=== PATIENT | female | born 1985 | race Caucasian/White ===

== ENCOUNTER 2019-07-19 08:13 | Emergency (ER) | payer MEDICAID ==
[2019-07-19 08:31] VITALS: O2SAT 97
--- NOTE | 2019-07-19 08:34 | ERPHSYRPT ---
- History of Present Illness Time Seen by Provider: 07/19/19 08:27 Source: patient Exam Limitations: no limitations Method of Injury: twisted Occurred: just prior to arrival, this morning Quality: aching Severity of Pain-Max: mild (Patient took tylenol just prior to arrival. She declined additional pain medication.) Lower Extremities Pain: ankle: right (Medial aspect right ankle. Remainder of physical exam is negative. ) Modifying Factors: Improves With: movement (Movement and palpation to medial aspect right ankle reproduce symptoms. ) Associated Symptoms: none Allergies/Adverse Reactions: No Known Drug Allergies Allergy (Unverified 07/19/19 08:24) Home Medications: Duloxetine HCl [Cymbalta] 1 tab PO HS 07/19/19 [History] - Review of Systems Constitutional: No Fever, No Chills Eyes: No Symptoms Ears, Nose, & Throat: No Symptoms Respiratory: No Cough, No Dyspnea Cardiac: No Chest Pain, No Edema, No Syncope Abdominal/Gastrointestinal: No Abdominal Pain, No Nausea, No Vomiting, No Diarrhea Genitourinary Symptoms: No Dysuria Musculoskeletal: No Back Pain, No Neck Pain Skin: No Rash Neurological: No Dizziness, No Focal Weakness, No Sensory Changes Psychological: No Symptoms Endocrine: No Symptoms All Other Systems: Reviewed and Negative - Past Medical History Pertinent Past Medical History: No Psycho-Social History: Depression - Past Surgical History Past Surgical History: Yes Gastrointestinal: Cholecystectomy - Social History Smoking Status: Never smoker (Tonsillectomy and bilateral hand tendon surgery.) - Female History Hx Now: No - Nursing Vital Signs Nursing Vital Signs: Initial Vital Signs Temperature 98.0 F 07/19/19 08:25 Pulse Rate 101 H 07/19/19 08:25 Respiratory Rate 18 07/19/19 08:25 Blood Pressure 111/71 07/19/19 08:25 O2 Sat by Pulse Oximetry 97 07/19/19 08:25 Pain Scale Pain Intensity 7 - Physical Exam General Appearance: alert Eyes, Ears, Nose, Throat Exam: moist mucous membranes Neck Exam: non-tender, supple Cardiovascular/Respiratory Exam: chest non-tender, normal breath sounds, regular rate/rhythm, no respiratory distress Gastrointestinal/Abdominal Exam: non-tender, guarding Back Exam: normal inspection, No vertebral tenderness Legs Exam: right leg: non-tender Knees Exam: right knee: non-tender Ankle Exam: right ankle: normal inspection, normal range of motion, no evidence of injury, pain Foot Exam: right foot: non-tender, normal range of motion, left foot: no evidence of injury Neuro/Tendon Exam: normal sensation, normal motor functions Mental Status Exam: alert, oriented x 3, cooperative Skin Exam: normal color, warm, dry SpO2 Interpretation: normal SpO2: 97 O2 Delivery: Room Air Comments: Patient has mild soreness at right achilles. Achilles function intact. Overlying ST intact. No signs of trauma. - Radiology Exams Right Ankle X-ray Interpretation: No Fracture Ordered Tests: Active Orders 24 hr Category Date Time Status Crutches STAT Care 07/19/19 08:57 Active ANKLE (3 VIEWS) Stat Exams 07/19/19 08:28 Completed - Progress Progress: improved Progress Note: 07/19/19 08:39 Patient reassessed. She feels well. Appears comfortable. Patient declined additional pain medication. X ray negative for acute pathology. Involved extremity is NVI distally. - Departure Departure Disposition: Home Clinical Impression: Ankle sprain, Heel spur Condition: Good Critical Care Time: No Referrals: JENARO FELIX PA [Primary Care Provider] - Instructions: Ankle Sprain Additional Instructions: Discharge/Care Plan ISIAH MENDOZA was seen on 07/19/19 in the Emergency Room. The patient was counseled regarding Diagnosis,Lab results, Imaging studies, need for follow up and when to return to the Emergency Room. Prescriptions given: Discharge Note I have spoken with the patient and/or caregivers. I have explained the patient' s condition, diagnosis and treatment plan based on the information available to me at this time. I have answered the patient's and/or caregiver's questions and addressed any concerns. The patient and/or caregivers have as good understanding of the patient's diagnosis, condition and treatment plan as can be expected at this point. The vital signs have been stable. The patient's condition is stable and appropriate for discharge from the emergency department. The patient will pursue further outpatient evaluation with the primary care physician or other designated or consulting physician as outlined in the discharge instructions. The patient and/or caregivers are agreeable to this plan of care and follow-up instructions have been explained in detail. The patient and/or caregivers have received these instruction. The patient/and or caregivers are aware that any significant change in condition or worsening of symptoms should prompt an immediate return to this or the closest emergency department or call 911. Forms: Ortho Referral
--- NOTE | 2019-07-19 08:48 | XRAY ---
Indication: Pain following twisting injury. Comparison: None 3 views of the right ankle demonstrates mild soft tissue swelling and tiny plantar heel spur. No other bony, articular, or soft tissue abnormalities.
[2019-07-19 09:19] VITALS: BP 97/63; PULSE 83
== END 2019-07-19 09:00 | disposition home or self-care (01) ==
LOC: ED 08:13
DX: S93.491A Sprain of other ligament of right ankle, initial encounter (principal); X50.1XXA Overexertion from prolonged static or awkward postures, initial encounter; Y93.9 Activity, unspecified; Y92.9 Unspecified place or not applicable; F32.9 Major depressive disorder, single episode, unspecified; M77.30 Calcaneal spur, unspecified foot
CPT/HCPCS: 73610; 99283

== ENCOUNTER 2020-06-17 11:06 | Emergency (ER) | payer SELFPAY ==
[2020-06-17] MEDS ORDERED: TORAdol 30 mg Injection IM ONE (11:27)
[2020-06-17] MEDS ORDERED: Fluor-I-Strip/Ful-Flo OP ONE ×2 (11:28→11:44)
[2020-06-17] MEDS ORDERED: TETRACAINE 0.5% STERI-UNIT SOL OP STA (11:29)
[2020-06-17] MEDS ORDERED: TETRACAINE 0.5% STERI-UNIT SOL OP ONE (11:34)
[2020-06-17] MEDS ORDERED: TORAdol 30 mg Injection ONE (11:35)
[2020-06-17] MEDS ORDERED: Erythromycin 3.5 GM OPHTH. OP ONE (11:50)
--- NOTE | 2020-06-17 11:57 | ERPHSYRPT ---
- History of Present Illness Source: patient Patient Subjective Stated Complaint: pt here for lesions to face and head for 8 days now, no fever. vomiting Triage Nursing Assessment: pt alert, anxious crying and times she is loud with staff, emtional support given, pt right side of face swollen, with lesion to right side of forehead, in hair. Physician History: Patient is a 34-year-old female presents to our ED with complaints of facial swelling. Patient has herpetic vesicles on scalp forehead. Her right eye is injected with subconjunctival hemorrhage. No acute change in vision. Patient symptoms started 1 week ago Wednesday. Symptoms have been constant. Symptoms have been progressive. Patient complains of tender lymph nodes on the side of her face as well. No trauma. No fever. No nausea or vomiting. No headache. Symptoms are moderate in intensity. Palpation to the area of involvement reproduces symptoms. Patient has poor dentition. She denies dental pain. No difficulty swallowing no difficulty breathing no difficulty eating. Patient is otherwise healthy. She voices no other complaints or concerns at this time. Timing/Duration: week(s) (Symptoms have been ongoing for 8 days.) Severity: moderate Modifying Factors: Improves With: nothing Associated Symptoms: No nausea, No vomiting, No abdominal pain, No heartburn, No diaphoresis, No cough, No chest pain, No fever, No syncope, No seizure, No weakness Allergies/Adverse Reactions: No Known Drug Allergies Allergy (Unverified 07/19/19 08:24) Home Medications: Duloxetine HCl [Cymbalta] 1 tab PO HS 07/19/19 [History] Hx Influenza Vaccination/Date Given: No Hx Pneumococcal Vaccination/Date Given: No Immunizations Up to Date: Yes Travel Risk - International Travel Have you traveled outside of the country in past 3 weeks: No - Coronavirus Screening Are you exhibiting any of the following symptoms?: No Close contact with a COVID-19 positive Pt in past 14-21 Days: No - Review of Systems Constitutional: No Symptoms, No Fever, No Chills Eyes: No Symptoms Ears, Nose, & Throat: No Symptoms Respiratory: No Symptoms, No Cough, No Dyspnea Cardiac: No Symptoms, No Chest Pain, No Edema, No Syncope Abdominal/Gastrointestinal: No Symptoms, No Abdominal Pain, No Nausea, No Vomiting, No Diarrhea Genitourinary Symptoms: No Symptoms, No Dysuria Musculoskeletal: No Symptoms, No Back Pain, No Neck Pain Skin: No Symptoms, No Rash Neurological: No Symptoms, No Dizziness, No Focal Weakness, No Sensory Changes Psychological: No Symptoms Endocrine: No Symptoms Hematologic/Lymphatic: No Symptoms Immunological/Allergic: No Symptoms All Other Systems: Reviewed and Negative - Past Medical History Pertinent Past Medical History: No Neurological History: No Pertinent History ENT History: No Pertinent History Cardiac History: No Pertinent History Respiratory History: No Pertinent History Endocrine Medical History: No Pertinent History Musculoskeletal History: No Pertinent History GI Medical History: No Pertinent History History: No Pertinent History Psycho-Social History: Depression Female Reproductive Disorders: No Pertinent History Other Medical History: chronic back - Past Surgical History Past Surgical History: Yes Neuro Surgical History: No Pertinent History Cardiac: No Pertinent History Respiratory: No Pertinent History Gastrointestinal: Cholecystectomy Genitourinary: No Pertinent History Musculoskeletal: Orthopedic Surgery, Other Female Surgical History: No Pertinent History Other Surgical History: Tendon surgery on carole hands. - Social History Smoking Status: Never smoker Exposure to second hand smoke: No Drug Use: none Patient Lives Alone: No - Female History Hx Last Menstrual Period: dec Hx Now: No - Nursing Vital Signs Nursing Vital Signs: Pain Scale Pain Intensity 10 - Physical Exam General Appearance: no apparent distress, alert Eye Exam: PERRL/EOMI, eyes nml inspection, other (Subconjunctival hemorrhage. No obvious dendritic lesions on the cornea. Patient denies acute change in vision. Patient has some swelling along her upper eyelid however this is probably trickled down edema from her scalp forehead area.) Ears, Nose, Throat Exam: normal ENT inspection, TMs normal, pharynx normal, moist mucous membranes, other (There is lymph nodes anterior to her right ear and just inferior to the right mandibular jawline. Overlying soft tissue intact.) Neck Exam: normal inspection, non-tender, supple, full range of motion Respiratory Exam: normal breath sounds, lungs clear, No respiratory distress Cardiovascular Exam: regular rate/rhythm, normal heart sounds, normal peripheral pulses Gastrointestinal/Abdomen Exam: soft, normal bowel sounds, No tenderness, No mass Back Exam: normal inspection, normal range of motion, No CVA tenderness, No vertebral tenderness Extremity Exam: normal inspection, normal range of motion, pelvis stable Neurologic Exam: alert, oriented x 3, cooperative, normal mood/affect, nml cerebellar function, nml station & gait, sensation nml, No motor deficits Skin Exam: normal color, warm, dry, No rash Lymphatic Exam: No adenopathy - Course Nursing assessment & vital signs reviewed: Yes Ordered Tests: Active Orders 24 hr Category Date Time Status HCG,QUALITATIVE URINE Stat Lab 06/17/20 11:28 Ordered UA W/RFX UR CULTURE Stat Lab 06/17/20 11:28 Ordered Medication Summary Generic Name Dose Route Start Last Admin Trade Name Freq PRN Reason Stop Dose Admin Acyclovir 800 mg 06/17/20 15:00 Zovirax 800 Mg PO 07/17/20 14:59 5XD CONSTANTINE Discontinued Medications Generic Name Dose Route Start Last Admin Trade Name Freq PRN Reason Stop Dose Admin Erythromycin 3.5 gm 06/17/20 11:50 Erythromycin 3.5 Gm Ophth. OP 06/17/20 11:51 STAT ONE Fluorescein Sodium 1 mg 06/17/20 11:28 Vvrzv-H-Ytbyr/Ful-Souleymane OP 06/17/20 11:29 STAT ONE Fluorescein Sodium Confirm 06/17/20 11:44 Nysvu-S-Dnzik/Ful-Souleymane Administered 06/17/20 11:45 Dose 1 mg OP .STK-MED ONE Ketorolac Tromethamine 60 mg 06/17/20 11:27 Toradol 30 Mg Injection IM 06/17/20 11:28 STAT ONE Ketorolac Tromethamine Confirm 06/17/20 11:35 Toradol 30 Mg Injection Administered 06/17/20 11:36 Dose 60 mg .ROUTE .STK-MED ONE Tetracaine HCl 4 ml 06/17/20 11:29 Tetracaine 0.5% Steri-Unit Marily OP 06/17/20 11:30 STAT STA Tetracaine HCl Confirm 06/17/20 11:34 Tetracaine 0.5% Steri-Unit Marily Administered 06/17/20 11:35 Dose 4 ml OP .STK-MED ONE - Progress Progress: improved Progress Note: 06/17/20 11:56 Patient reassessed. Pain improved. 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 Patient received a dose of acyclovir in our ED. A prescription for Toradol and acyclovir forwarded to patient's pharmacy. No indication for glucocorticoids at this time. No indication for further work-up at this time. Will discharge home. Patient voices no other complaints or concerns at this time. Patient given referrals to both her primary care doctor and our available school director if she cannot get into her private school director 06/17/20 11:59 Counseled pt/family regarding: lab results, diagnosis, need for follow-up - Departure Departure Disposition: Home Clinical Impression: Ophthalmic herpes zoster Condition: Stable Critical Care Time: No Referrals: JENARO FELIX PA [Primary Care Provider] - LUKE RANKIN OD [NON-STAFF PHY W/O PRIVILEGES] - Additional Instructions: Discharge/Care Plan ISIAH MENDOZA was seen on 06/17/20 in the Emergency Room. The patient was counseled regarding Diagnosis,Lab results, Imaging studies, need for follow up and when to return to the Emergency Room. Prescriptions given: Discharge Note I have spoken with the patient and/or caregivers. I have explained the patient's condition, diagnosis and treatment plan based on the information available to me at this time. I have answered the patient's and/or caregiver's questions and addressed any concerns. The patient and/or caregivers have as good understanding of the patient's diagnosis, condition and treatment plan as can be expected at this point. The vital signs have been stable. The patient's condition is stable and appropriate for discharge from the emergency department. The patient will pursue further outpatient evaluation with the primary care physician or other designated or consulting physician as outlined in the discharge instructions. The patient and/or caregivers are agreeable to this plan of care and follow-up instructions have been explained in detail. The patient a nd/or caregivers have received these instruction. The patient/and or caregivers are aware that any significant change in condition or worsening of symptoms should prompt an immediate return to this or the closest emergency department or call 911. Prescriptions: Erythromycin Base 3.5 gm [Erythromycin 3.5 GM OPHTH.] 3.5 gm OP TID #1 tube Ketorolac Tromethamine [Toradol] 10 mg PO TID 5 Days #15 tablet Acyclovir 800 mg [Zovirax 800 mg] 800 mg PO 5XD 7 Days #35 tablet
[2020-06-17 12:05] LABS: Appearance CLOUDY (CLEAR); Bacteria FEW /HPF (NEGATIVE); Bilirubin NEGATIVE (NEGATIVE); Blood NEGATIVE Ery/ul (0-5); Epithelial Cells RARE /HPF (FEW); Glucose NEGATIVE (NEGATIVE); Ketones NEGATIVE (NEGATIVE); Leukocyte Esterase TRACE (NEGATIVE); Mucus SLIGHT /HPF (NEGATIVE); Nitrite NEGATIVE (NEGATIVE); Protein,Urine Dip 100 (Negative); Specific Gravity 1.015 (1.005-1.025); Urobilinogen 2 mg/dL (0-1)
[2020-06-17] MEDS ORDERED: ZOVIRAX 800 MG PO SCH (15:00)
== END 2020-06-17 12:40 | disposition home or self-care (01) ==
LOC: ED 11:06
DX: B02.30 Zoster ocular disease, unspecified (principal)
CPT/HCPCS: 81001; 84703; 87086; 96372; 99284; J1885; A9270-GY

== ENCOUNTER 2020-10-15 23:12 | Emergency (ER) | payer OTHER ==
[2020-10-15] MEDS ORDERED: TYLENOL 325 MG PO ONE (23:54)
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
[2020-10-16] MEDS ORDERED: TYLENOL 325 MG ONE (00:17)
[2020-10-16 02:14] VITALS: BP 107/76; PULSE 79; O2SAT 97
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
== END 2020-10-16 02:17 | disposition home or self-care (01) ==
LOC: ED 23:12
DX: S39.012A Strain of muscle, fascia and tendon of lower back, initial encounter (principal); S30.23XA Contusion of vagina and vulva, initial encounter; Y04.0XXA Assault by unarmed brawl or fight, initial encounter; Y93.89 Activity, other specified; Y92.89 Other specified places as the place of occurrence of the external cause
CPT/HCPCS: 72100; 99283; A9270-GY

== ENCOUNTER 2021-06-07 06:31 | Emergency (ER) | payer OTHER ==
[2021-06-07] MEDS ORDERED: Sodium Chloride 0.9% 1000 ML 1,000 ML IV STA (07:16)
[2021-06-07] MEDS ORDERED: Zofran 4 MG/2 ML VIAL IV ONE (07:16)
[2021-06-07] MEDS ORDERED: Sodium Chloride 0.9% 1000 ML 1,000 ML ONE (07:24)
[2021-06-07] MEDS ORDERED: Zofran 4 MG/2 ML VIAL ONE (07:24)
[2021-06-07] MEDS ORDERED: MORPHINE SULFATE 4 MG INJ ONE ×2 (07:34→08:55)
[2021-06-07 07:36] LABS: Absolute Neutrophil Ct (ANC) 15.24 (1.4-6.9); BASOPHIL % 0.1 % (0.0-0.4); Basophil (Absolute #) 0.02 (0-0.4); Eosinophil % 0.2 % (0.00-5.0); Eosinophil (Absolute #) 0.03 (0-0.5); Hematocrit 47.6 % (35-47); Hemoglobin 15.2 gm/dl (12.0-16.0); Lymphocyte (Absolute #) 2.95 (1.0-4.6); Lymphocytes % 14.9 % (24.0-44.0); Mean Cell Volume 85.6 fl (78-100); Mean Corpuscular Hemoglobin 27.3 pg (26-32); Mean Corpuscular Hgb Concent. 31.9 g/dl (32-36); Mean Platelet Volume 10.6 fl (7.5-11.0); Monocytes % 8.1 % (0.0-12.0); Neutrophil % 76.7 % (36.0-66.0); Platelet Count 222 K/mm3 (150-450); Red Blood Count 5.56 M/mm3 (4.1-5.4); Red Cell Distribution Width 17.3 % (11.5-14.0); White Blood Count 19.8 K/mm3 (4.0-10.5)
[2021-06-07] MEDS ORDERED: MORPHINE SULFATE 4 MG INJ IV ONE ×2 (07:38→11:30)
--- NOTE | 2021-06-07 07:38 | ERPHSYRPT ---
- History of Present Illness Time Seen by Provider: 06/07/21 07:15 Historian: patient Exam Limitations: no limitations Patient Subjective Stated Complaint: Pt states she has a new diagnosis of Celiac Disease within the last 1-2 months. States she has been vomiting since Wednesday, can't keep anything down. Has not had a bowel movement for 1 week except for 1 small stool last night. Also states she has lost 6 pounds since Wednesday Triage Nursing Assessment: Pt ambulated to room guarding her abdomen. Respirations easy and non-labored. Abdomen tender to palpation. Hypoactive bowel sounds present Physician History: 35 years old morbidly obese female recently diagnosed with celiac disease presented in ER with chief complaint of 4 days history of generalized abdominal pain moderate to severe, sharp, aggravated with oral intake, associated with multiple episodes of nonprojectile, nonbilious vomiting without hematemesis. Denies any diarrhea. No fever or chills reported. Timing/Duration: day(s) (4), constant, gradual onset, worse Activities at Onset: rest Quality: sharpness Abdominal Pain Onset Location: generalized abdomen Pain Radiation: no radiation Severity of Pain-Max: severe Severity of Pain-Current: severe Modifying Factors: Worsens With: eating, vomiting Associated Symptoms: nausea, vomiting Previous symptoms: no prior history Allergies/Adverse Reactions: No Known Drug Allergies Allergy (Verified 10/15/20 23:26) Home Medications: Duloxetine HCl 30 mg [Cymbalta 30 MG Capsule] 60 mg PO DAILY 06/07/21 [History] Famotidine 20 mg [Pepcid 20 MG] 40 mg PO DAILY 06/07/21 [History] Gabapentin 100 mg [Neurontin 100 MG] 100 mg PO BID 06/07/21 [History] Loratadine 10 mg [Claritin 10 mg] 10 mg PO DAILY 06/07/21 [History] Paroxetine HCl 20 mg [Paxil 20 MG] 10 mg PO DAILY 06/07/21 [History] ondansetron HCL [Zofran] 4 mg PO TID PRN 06/07/21 [History] Hx Tetanus, Diphtheria Vaccination/Date Given: Yes Hx Influenza Vaccination/Date Given: No Hx Pneumococcal Vaccination/Date Given: No Travel Risk - International Travel Have you traveled outside of the country in past 3 weeks: No - Coronavirus Screening Are you exhibiting any of the following symptoms?: Yes Symptoms: Vomiting/Diarrhea Close contact with a COVID-19 positive Pt in past 14-21 Days: No - Vaccine Status Have you recieved a Covid-19 vaccination: No - Review of Systems Constitutional: Fatigue, Weakness Eyes: No Symptoms Ears, Nose, & Throat: No Symptoms Respiratory: No Symptoms Cardiac: No Symptoms Abdominal/Gastrointestinal: Abdominal Pain, Nausea, Vomiting Genitourinary Symptoms: No Symptoms Musculoskeletal: No Symptoms Skin: No Symptoms Neurological: No Symptoms Psychological: Anxiety Endocrine: No Symptoms Hematologic/Lymphatic: No Symptoms Immunological/Allergic: No Symptoms - Past Medical History Pertinent Past Medical History: Yes Neurological History: No Pertinent History ENT History: No Pertinent History Cardiac History: No Pertinent History Respiratory History: No Pertinent History Endocrine Medical History: No Pertinent History Musculoskeletal History: No Pertinent History GI Medical History: Other History: No Pertinent History Psycho-Social History: Depression Female Reproductive Disorders: No Pertinent History Other Medical History: chronic back, celiac disease - Past Surgical History Past Surgical History: Yes Neuro Surgical History: No Pertinent History Cardiac: No Pertinent History Respiratory: No Pertinent History Gastrointestinal: Cholecystectomy Genitourinary: No Pertinent History Musculoskeletal: Orthopedic Surgery, Other Female Surgical History: No Pertinent History Other Surgical History: Tendon surgery on carole hands. - Social History Smoking Status: Never smoker Exposure to second hand smoke: No Drug Use: none Patient Lives Alone: No - Female History Hx Now: No - Nursing Vital Signs Nursing Vital Signs: Initial Vital Signs Temperature 98.4 F 06/07/21 07:14 Pulse Rate 108 H 06/07/21 07:14 Respiratory Rate 20 06/07/21 07:14 Blood Pressure 124/96 06/07/21 07:14 O2 Sat by Pulse Oximetry 95 06/07/21 07:14 Pain Scale Pain Intensity 6 - Physical Exam General Appearance: no apparent distress, alert, anxiety Eye Exam: PERRL/EOMI, eyes nml inspection Ears, Nose, Throat Exam: normal ENT inspection, pharynx normal Neck Exam: normal inspection, non-tender, supple, full range of motion Respiratory Exam: normal breath sounds, lungs clear Cardiovascular Exam: normal heart sounds, tachycardia Gastrointestinal/Abdomen Exam: soft, normal bowel sounds, tenderness (Mild periumbilical area) Back Exam: normal inspection, normal range of motion Extremity Exam: normal inspection, normal range of motion, pelvis stable Neurologic Exam: alert, oriented x 3, cooperative Skin Exam: normal color SpO2 Interpretation: normal SpO2: 95 O2 Delivery: Room Air Ordered Tests: Active Orders 24 hr Category Date Time Status NPO (ED) STAT Care 06/07/21 07:38 Active ABDOMEN AND PELVIS W CONTRAST [CT] Stat Exams 06/07/21 07:39 Taken CBC W DIFF Stat Lab 06/07/21 07:30 Completed CMP Stat Lab 06/07/21 07:30 Completed CULTURE,URINE Stat Lab 06/07/21 07:32 Received HCG,QUALITATIVE URINE Stat Lab 06/07/21 07:16 Completed LIPASE Stat Lab 06/07/21 07:30 Completed Lactic Acid Stat Lab 06/07/21 10:38 Completed UA W/RFX UR CULTURE Stat Lab 06/07/21 07:32 Completed Medication Summary Generic Name Dose Route Start Last Admin Trade Name Freq PRN Reason Stop Dose Admin Ceftriaxone Sodium/Dextrose 2 g in 50 mls @ 100 mls/hr 06/07/21 10:38 Rocephin 2 Gm-D5w 50ml Bag IV 06/07/21 11:07 STAT STA Discontinued Medications Generic Name Dose Route Start Last Admin Trade Name Freq PRN Reason Stop Dose Admin Sodium Chloride 1,000 mls @ 999 mls/hr 06/07/21 07:16 06/07/21 08:35 Sodium Chloride 0.9% 1000 Ml IV 06/07/21 08:16 Infused .Q1H1M STA Infusion Sodium Chloride Confirm 06/07/21 07:24 Sodium Chloride 0.9% 1000 Ml Administered 06/07/21 07:25 Dose 1,000 mls @ ud .ROUTE .STK-MED ONE Morphine Sulfate Confirm 06/07/21 07:34 Morphine Sulfate 4 Mg/Ml Injection Administered 06/07/21 07:35 Dose 4 mg .ROUTE .STK-MED ONE Morphine Sulfate 4 mg 06/07/21 07:38 06/07/21 07:40 Morphine Sulfate 4 Mg/Ml Injection IV 06/07/21 07:39 4 mg STAT ONE Administration Morphine Sulfate Confirm 06/07/21 08:55 Morphine Sulfate 4 Mg/Ml Injection Administered 06/07/21 08:56 Dose 4 mg .ROUTE .STK-MED ONE Ondansetron HCl 4 mg 06/07/21 07:16 06/07/21 07:25 Ondansetron Hcl 4 Mg/2 Ml Vial IV 06/07/21 07:17 4 mg STAT ONE Administration Ondansetron HCl Confirm 06/07/21 07:24 Ondansetron Hcl 4 Mg/2 Ml Vial Administered 06/07/21 07:25 Dose 4 mg .ROUTE .STK-MED ONE Lab/Rad Data: Laboratory Result Diagrams 06/07/21 07:30 06/07/21 07:30 Laboratory Results 06/07/21 06/07/21 06/07/21 Range/Units 10:38 07:32 07:30 WBC (4.0-10.5) K/mm3 RBC (4.1-5.4) M/mm3 Hgb (12.0-16.0) gm/dl Hct (35-47) % MCV (78-100) fl MCH (26-32) pg MCHC (32-36) g/dl RDW (11.5-14.0) % Plt Count (150-450) K/mm3 MPV (7.5-11.0) fl Gran % (36.0-66.0) % Eos # (Auto) (0-0.5) Absolute Lymphs (auto) (1.0-4.6) Absolute Monos (auto) (0.0-1.3) Lymphocytes % (24.0-44.0) % Monocytes % (0.0-12.0) % Eosinophils % (0.00-5.0) % Basophils % (0.0-0.4) % Absolute Granulocytes (1.4-6.9) Basophils # (0-0.4) Sodium 138 (137-145) mmol/L Potassium 3.5 (3.5-5.1) mmol/L Chloride 103 (98-107) mmol/L Carbon Dioxide 25 (22-30) mmol/L Anion Gap 13.0 (5-15) MEQ/L BUN 8 (7-17) mg/dL Creatinine 0.65 (0.52-1.04) mg/dL Estimated GFR > 60.0 ML/MIN Glucose 112 H (74-106) mg/dL Lactic Acid 1.9 (0.4-2.0) Calcium 8.8 (8.4-10.2) mg/dL Total Bilirubin 1.10 (0.2-1.3) mg/dL AST 30 (14-36) U/L ALT 14 (0-35) U/L Alkaline Phosphatase 104 (38-126) U/L Serum Total Protein 5.8 L (6.3-8.2) g/dL Albumin 3.6 (3.5-5.0) g/dL Lipase 65 (23-300) U/L Urine Color YELLOW (YELLOW) Urine Appearance CLOUDY (CLEAR) Urine pH 6.0 (5-6) Ur Specific Casper 1.017 (1.005-1.025) Urine Protein NEGATIVE (Negative) Urine Ketones SMALL (NEGATIVE) Urine Blood NEGATIVE (0-5) Venkata/ul Urine Nitrite NEGATIVE (NEGATIVE) Urine Bilirubin NEGATIVE (NEGATIVE) Urine Urobilinogen 2 (0-1) mg/dL Ur Leukocyte Esterase LARGE (NEGATIVE) Urine WBC (Auto) 16-25 (0-5) /HPF Urine RBC (Auto) 0-2 (0-2) /HPF U Epithel Cells (Auto) FEW (FEW) /HPF Urine Bacteria (Auto) RARE (NEGATIVE) /HPF Urine Mucus (Auto) SLIGHT (NEGATIVE) /HPF Urine Culture Reflexed YES (NO) Urine Glucose NEGATIVE (NEGATIVE) mg/dL Urine HCG, Qual (Negative) 06/07/21 06/07/21 Range/Units 07:30 07:16 WBC 19.8 H (4.0-10.5) K/mm3 RBC 5.56 H (4.1-5.4) M/mm3 Hgb 15.2 (12.0-16.0) gm/dl Hct 47.6 H (35-47) % MCV 85.6 (78-100) fl MCH 27.3 (26-32) pg MCHC 31.9 L (32-36) g/dl RDW 17.3 H (11.5-14.0) % Plt Count 222 (150-450) K/mm3 MPV 10.6 (7.5-11.0) fl Gran % 76.7 H (36.0-66.0) % Eos # (Auto) 0.03 (0-0.5) Absolute Lymphs (auto) 2.95 (1.0-4.6) Absolute Monos (auto) 1.60 H (0.0-1.3) Lymphocytes % 14.9 L (24.0-44.0) % Monocytes % 8.1 (0.0-12.0) % Eosinophils % 0.2 (0.00-5.0) % Basophils % 0.1 (0.0-0.4) % Absolute Granulocytes 15.24 H (1.4-6.9) Basophils # 0.02 (0-0.4) Sodium (137-145) mmol/L Potassium (3.5-5.1) mmol/L Chloride (98-107) mmol/L Carbon Dioxide (22-30) mmol/L Anion Gap (5-15) MEQ/L BUN (7-17) mg/dL Creatinine (0.52-1.04) mg/dL Estimated GFR ML/MIN Glucose (74-106) mg/dL Lactic Acid (0.4-2.0) Calcium (8.4-10.2) mg/dL Total Bilirubin (0.2-1.3) mg/dL AST (14-36) U/L ALT (0-35) U/L Alkaline Phosphatase (38-126) U/L Serum Total Protein (6.3-8.2) g/dL Albumin (3.5-5.0) g/dL Lipase (23-300) U/L Urine Color (YELLOW) Urine Appearance (CLEAR) Urine pH (5-6) Ur Specific Casper (1.005-1.025) Urine Protein (Negative) Urine Ketones (NEGATIVE) Urine Blood (0-5) Venkata/ul Urine Nitrite (NEGATIVE) Urine Bilirubin (NEGATIVE) Urine Urobilinogen (0-1) mg/dL Ur Leukocyte Esterase (NEGATIVE) Urine WBC (Auto) (0-5) /HPF Urine RBC (Auto) (0-2) /HPF U Epithel Cells (Auto) (FEW) /HPF Urine Bacteria (Auto) (NEGATIVE) /HPF Urine Mucus (Auto) (NEGATIVE) /HPF Urine Culture Reflexed (NO) Urine Glucose (NEGATIVE) mg/dL Urine HCG, Qual NEGATIVE (Negative) - Progress Progress: improved, pain not gone completely, re-examined Progress Note: 06/07/21 11:02 35 years old is evaluated for abdominal pain with vomiting. Given symptomatic t reatment along with fluid bolus, on reevaluation feeling much better. No vomiting while in the ER. Work-up showed white count of 19, grossly unremarkable chemistries and normal lactate. She does have UTI and given a dose of Rocephin in here. Elevated white count could be reactive versus UTI. Lungs bilateral clear to auscultation and some atelectasis on the CT without any consolidation and maintaining oxygen saturation around 97%. I would give her antibiotics and recommended outpatient follow-up. Discussed signs symptoms of worsening needing return to ER which he seems understanding. Counseled pt/family regarding: lab results, diagnosis, need for follow-up, rad results - Departure Departure Disposition: Home Clinical Impression: Generalized abdominal pain, Nausea & vomiting, Acute UTI Condition: Stable Critical Care Time: No Referrals: BRENDAN ESCALERA, [Primary Care Provider] - Follow up/PCP as directed (In 2 d ays for reevaluation) Instructions: Acute Abdomen (Belly Pain), Adult (DC), Nausea and Vomiting, Adult (DC) Additional Instructions: Drink plenty of fluids. Take Tylenol as needed for aches and pain. Take Zofran/Phenergan as needed for nausea and vomiting. Follow-up with primary care for reevaluation in 2 days. Return to ER for worsening vomiting/abdominal pain or if develop fever chills etc. Continue with antibiotics. Prescriptions: Promethazine HCl 25 mg [Phenergan 25 mg] 25 mg PO Q8H PRN PRN #10 tablet PRN Reason: Vomiting Levofloxacin [Levaquin 500 MG Tablet] 500 mg PO DAILY #7 tablet
[2021-06-07 07:51] LABS: ALBUMIN 3.6 g/dL (3.5-5.0); ALKALINE PHOSPHATASE 104 U/L (38-126); BLOOD UREA NITROGEN 8 mg/dL (7-17); CHLORIDE 103 mmol/L (98-107); Calcium 8.8 mg/dL (8.4-10.2); Carbon Dioxide 25 mmol/L (22-30); Creatinine 1 0.65 mg/dL (0.52-1.04); EST GLOMERULAR FILTRATION RATE > 60.0 ML/MIN; Glucose 112 mg/dL (74-106); LIPASE 65 U/L (23-300); Potassium 3.5 mmol/L (3.5-5.1); SGOT/AST 30 U/L (14-36); SGPT/ALT 14 U/L (0-35); SODIUM 138 mmol/L (137-145); Total Protein 5.8 g/dL (6.3-8.2)
[2021-06-07 09:49] LABS: Appearance CLOUDY (CLEAR); Bacteria RARE /HPF (NEGATIVE); Bilirubin NEGATIVE (NEGATIVE); Blood NEGATIVE Ery/ul (0-5); Epithelial Cells FEW /HPF (FEW); Glucose NEGATIVE (NEGATIVE); Ketones SMALL (NEGATIVE); Leukocyte Esterase LARGE (NEGATIVE); Mucus SLIGHT /HPF (NEGATIVE); Nitrite NEGATIVE (NEGATIVE); Protein,Urine Dip NEGATIVE (Negative); RBC 0-2 /HPF (0-2); Specific Gravity 1.017 (1.005-1.025); Urobilinogen 2 mg/dL (0-1)
[2021-06-07] MEDS ORDERED: ROCEPHIN 2 Gm-D5w 50ML BAG** 2 G/50 ML IVPB IV STA (10:38)
[2021-06-07] MEDS ORDERED: ROCEPHIN 2 Gm-D5w 50ML BAG** 2 G/50 ML IVPB IV ONE (11:17)
[2021-06-07 11:25] VITALS: BP 134/91; PULSE 80; O2SAT 93
--- NOTE | 2021-06-07 18:59 | XRAY ---
Indication: Abdomen pain, nausea, and vomiting. Bowel obstruction. Multiple contiguous axial images obtained through the abdomen and pelvis using 80 cc Isovue 370 contrast. Comparison: None Lung bases demonstrates minimal bibasilar patchy groundglass airspace disease, right greater than left. No effusion. Heart not enlarged. Noncontrasted stomach and bowel loops appear nonobstructed. Normal appendix. Previous cholecystectomy. No free fluid/air. Remaining liver, pancreas, spleen, adrenal glands, kidneys, ureters, bladder, uterus, and aorta are unremarkable. No pathologic retroperitoneal lymphadenopathy. Osseous structures intact. No ventral or inguinal hernias. Impression: 1. Minimal bibasilar patchy groundglass airspace disease. 2. Remaining CT abdomen/pelvis with contrast exam is negative. Comment: Preliminary interpretation made by [facility]. No critical discrepancy.
== END 2021-06-07 11:30 | disposition home or self-care (01) ==
LOC: ED 06:31
DX: N39.0 Urinary tract infection, site not specified (principal); R10.84 Generalized abdominal pain; R11.2 Nausea with vomiting, unspecified; K90.0 Celiac disease
CPT/HCPCS: 36000; 36415; 74177; 80053; 81001; 83605; 83690; 84703; 85025; 87077; 87086; 87186; 96360; 96374; 96375; 99284; J0696; J2270; J2405

== ENCOUNTER 2021-07-02 13:38 | Emergency (ER) | payer OTHER ==
[2021-07-02 14:10] LABS: Absolute Neutrophil Ct (ANC) 9.35 (1.4-6.9); Basophil (Absolute #) 0.02 (0-0.4); Eosinophil % 0.4 % (0.00-5.0); Eosinophil (Absolute #) 0.06 (0-0.5); Hematocrit 43.7 % (35-47); Lymphocyte (Absolute #) 2.82 (1.0-4.6); Lymphocytes % 21.1 % (24.0-44.0); Mean Cell Volume 84.4 fl (78-100); Mean Platelet Volume 11.1 fl (7.5-11.0); Monocyte (Absolute #) 1.11 (0.0-1.3); Monocytes % 8.3 % (0.0-12.0); Neutrophil % 70.1 % (36.0-66.0); Platelet Count 259 K/mm3 (150-450); Red Blood Count 5.18 M/mm3 (4.1-5.4); Red Cell Distribution Width 16.7 % (11.5-14.0); White Blood Count 13.4 K/mm3 (4.0-10.5)
[2021-07-02 14:16] LABS: ALBUMIN 4.3 g/dL (3.5-5.0); ALKALINE PHOSPHATASE 145 U/L (38-126); AMYLASE 33 U/L (30-110); ANION GAP 14.4 MEQ/L (5-15); BLOOD UREA NITROGEN 5 mg/dL (7-17); CHLORIDE 102 mmol/L (98-107); Calcium 9.2 mg/dL (8.4-10.2); Carbon Dioxide 24 mmol/L (22-30); Creatinine 1 0.48 mg/dL (0.52-1.04); EST GLOMERULAR FILTRATION RATE > 60.0 ML/MIN; Glucose 92 mg/dL (74-106); LIPASE 69 U/L (23-300); Potassium 3.3 mmol/L (3.5-5.1); SGOT/AST 47 U/L (14-36); SGPT/ALT 20 U/L (0-35); SODIUM 137 mmol/L (137-145); Total Protein 7.2 g/dL (6.3-8.2)
--- NOTE | 2021-07-02 14:17 | ERPHSYRPT ---
- History of Present Illness Historian: patient Exam Limitations: no limitations Patient Subjective Stated Complaint: pt here for vomiting since wednesday, now has abd pain to right side. no fever, she has tried zofran with no relief, she was just dx with celiac disease recently, and her boyfriend was dx with hep b and hep c 2 weeks ago Triage Nursing Assessment: pt alert, resp easy, face mask in place, pt holding righ tside, abd soft, last bm today. Physician History: 35 yo wf w RUQ pain x 5 days. Pain is described as sharp and 9/10. She has had a previous rajesh. Pt has had some N/V but denies diarrhea/hematemsis/melena/hematochezia/dysuria/hematuria. Timing/Duration: other (5 days) Activities at Onset: rest Quality: sharpness Abdominal Pain Onset Location: RUQ Pain Radiation: no radiation Severity of Pain-Max: severe Severity of Pain-Current: severe Modifying Factors: Improves With: nothing Associated Symptoms: loss of appetite, nausea, vomiting, No back, No chest pain, No diaphoresis, No diarrhea, No fever/chills, No fatigue, No headache, No heartburn, No neck pain, No rash, No shortness of breath, No syncope, No weakness Previous symptoms: no prior history Allergies/Adverse Reactions: No Known Drug Allergies Allergy (Verified 07/02/21 13:44) Home Medications: Duloxetine HCl 30 mg [Cymbalta 30 MG Capsule] 60 mg PO DAILY 06/07/21 [History] Famotidine 20 mg [Pepcid 20 MG] 40 mg PO DAILY 06/07/21 [History] Gabapentin 100 mg [Neurontin 100 MG] 100 mg PO BID 06/07/21 [History] Loratadine 10 mg [Claritin 10 mg] 10 mg PO DAILY 06/07/21 [History] Paroxetine HCl 20 mg [Paxil 20 MG] 10 mg PO DAILY 06/07/21 [History] ondansetron HCL [Zofran] 4 mg PO TID PRN 06/07/21 [History] Hx Tetanus, Diphtheria Vaccination/Date Given: Yes Hx Influenza Vaccination/Date Given: No Hx Pneumococcal Vaccination/Date Given: No Immunizations Up to Date: Yes Travel Risk - International Travel Have you traveled outside of the country in past 3 weeks: No - Coronavirus Screening Are you exhibiting any of the following symptoms?: Yes Symptoms: Vomiting/Diarrhea - Vaccine Status Have you recieved a Covid-19 vaccination: No - Review of Systems Constitutional: No Symptoms Eyes: No Symptoms Ears, Nose, & Throat: No Symptoms Respiratory: No Symptoms Cardiac: No Symptoms Abdominal/Gastrointestinal: Abdominal Pain, Nausea, Vomiting, No Diarrhea, No Constipation, No Hematemesis, No Hematochezia, No Melena, No Dysphagia, No Appetite Changes Genitourinary Symptoms: No Symptoms Musculoskeletal: No Symptoms Skin: No Symptoms Neurological: No Symptoms Psychological: No Symptoms Endocrine: No Symptoms Hematologic/Lymphatic: No Symptoms Immunological/Allergic: No Symptoms - Past Medical History Pertinent Past Medical History: Yes Neurological History: No Pertinent History ENT History: No Pertinent History Cardiac History: No Pertinent History Respiratory History: No Pertinent History Endocrine Medical History: No Pertinent History Musculoskeletal History: No Pertinent History GI Medical History: Other History: No Pertinent History Psycho-Social History: Depression Female Reproductive Disorders: No Pertinent History Other Medical History: chronic back, celiac disease, 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 - Social History Smoking Status: Never smoker Exposure to second hand smoke: Yes Drug Use: none Patient Lives Alone: Yes Significant Family History: no pertinent family hx - Female History Hx Last Menstrual Period: unure Hx Now: No (unsure) - Nursing Vital Signs Nursing Vital Signs: Initial Vital Signs Pulse Rate 92 H 07/02/21 15:59 Respiratory Rate 18 07/02/21 15:59 O2 Sat by Pulse Oximetry 99 07/02/21 15:59 Pain Scale Pain Intensity 4 - Physical Exam General Appearance: no apparent distress Eye Exam: PERRL/EOMI, eyes nml inspection Ears, Nose, Throat Exam: normal ENT inspection, TMs normal, pharynx normal, moist mucous membranes, tonsillar exudate Neck Exam: normal inspection, non-tender, supple, No meningismus, No mass, No Brudzinski, No Kernig's, No carotid bruit Respiratory Exam: normal breath sounds, lungs clear, airway intact Cardiovascular Exam: regular rate/rhythm, normal heart sounds, normal peripheral pulses, No murmur Gastrointestinal/Abdomen Exam: soft (Morbidly obese), tenderness (RUQ TTP w guarding/No rebound) Back Exam: normal inspection, normal range of motion, CVA tenderness, No vertebral tenderness Extremity Exam: normal inspection, normal range of motion Neurologic Exam: alert, oriented x 3, cooperative, central services tech II-XII nml as tested, normal mood/affect, sensation nml, No nml cerebellar function, No nml station & gait, No motor deficits, No sensory deficit Skin Exam: normal color, warm, dry Lymphatic Exam: No adenopathy SpO2 Interpretation: normal SpO2: 98 O2 Delivery: Room Air - Course Nursing assessment & vital signs reviewed: Yes - CT Exams Abdomen/Pelvis CT Interpretation: Discussed w/radiologist (CT ab-pelvis neg) Ordered Tests: Active Orders 24 hr Category Date Time Status ABDOMEN AND PELVIS W CONTRAST [CT] Stat Exams 07/02/21 14:42 Completed AMYLASE Stat Lab 07/02/21 14:00 Completed CBC W DIFF Stat Lab 07/02/21 14:00 Completed CMP Stat Lab 07/02/21 14:00 Completed CULTURE,URINE Stat Lab 07/02/21 13:57 Received HCG QUALITATIVE,SERUM Stat Lab 07/02/21 14:00 Completed LIPASE Stat Lab 07/02/21 14:00 Completed UA W/RFX UR CULTURE Stat Lab 07/02/21 13:57 Completed Urine Triage Profile Stat Lab 07/02/21 13:57 Completed Medication Summary Discontinued Medications Generic Name Dose Route Start Last Admin Trade Name Boubacarq PRN Reason Stop Dose Admin Sodium Chloride 1,000 mls @ 999 mls/hr 07/02/21 14:43 07/02/21 16:11 Sodium Chloride 0.9% 1000 Ml IV 07/02/21 15:43 Infused .Q1H1M STA Infusion Sodium Chloride Confirm 07/02/21 14:50 Sodium Chloride 0.9% 1000 Ml Administered 07/02/21 14:51 Dose 1,000 mls @ ud .ROUTE .STK-MED ONE Ceftriaxone Sodium/Dextrose 1 g in 50 mls @ 100 mls/hr 07/02/21 16:15 07/02/21 16:50 Rocephin 1 Gm-D5w 50 Ml Bag IV 07/02/21 16:44 Infused STAT STA Infusion Ceftriaxone Sodium/Dextrose Confirm 07/02/21 16:15 Rocephin 1 Gm-D5w 50 Ml Bag Administered 07/02/21 16:16 Dose 1 g in 50 mls @ ud IV .STK-MED ONE Ondansetron HCl 4 mg 07/02/21 14:43 07/02/21 14:54 Ondansetron Hcl 4 Mg/2 Ml Vial IV 07/02/21 14:44 4 mg STAT ONE Administration Ondansetron HCl Confirm 07/02/21 14:50 Ondansetron Hcl 4 Mg/2 Ml Vial Administered 07/02/21 14:51 Dose 4 mg .ROUTE .STK-MED ONE Lab/Rad Data: Laboratory Result Diagrams 07/02/21 14:00 07/02/21 14:00 Laboratory Results 07/02/21 07/02/21 07/02/21 Range/Units 14:00 14:00 14:00 WBC 13.4 H (4.0-10.5) K/mm3 RBC 5.18 (4.1-5.4) M/mm3 Hgb 14.0 (12.0-16.0) gm/dl Hct 43.7 (35-47) % MCV 84.4 (78-100) fl MCH 27.0 (26-32) pg MCHC 32.0 (32-36) g/dl RDW 16.7 H (11.5-14.0) % Plt Count 259 (150-450) K/mm3 MPV 11.1 H (7.5-11.0) fl Gran % 70.1 H (36.0-66.0) % Eos # (Auto) 0.06 (0-0.5) Absolute Lymphs (auto) 2.82 (1.0-4.6) Absolute Monos (auto) 1.11 (0.0-1.3) Lymphocytes % 21.1 L (24.0-44.0) % Monocytes % 8.3 (0.0-12.0) % Eosinophils % 0.4 (0.00-5.0) % Basophils % 0.1 (0.0-0.4) % Absolute Granulocytes 9.35 H (1.4-6.9) Basophils # 0.02 (0-0.4) Sodium 137 (137-145) mmol/L Potassium 3.3 L (3.5-5.1) mmol/L Chloride 102 (98-107) mmol/L Carbon Dioxide 24 (22-30) mmol/L Anion Gap 14.4 (5-15) MEQ/L BUN 5 L (7-17) mg/dL Creatinine 0.48 L (0.52-1.04) mg/dL Estimated GFR > 60.0 ML/MIN Glucose 92 (74-106) mg/dL Calcium 9.2 (8.4-10.2) mg/dL Total Bilirubin 1.50 H (0.2-1.3) mg/dL AST 47 H (14-36) U/L ALT 20 (0-35) U/L Alkaline Phosphatase 145 H (38-126) U/L Serum Total Protein 7.2 (6.3-8.2) g/dL Albumin 4.3 (3.5-5.0) g/dL Amylase 33 (30-110) U/L Lipase 69 (23-300) U/L Serum , Qual NEGATIVE (Negative) Urine Color (YELLOW) Urine Appearance (CLEAR) Urine pH (5-6) Ur Specific [place] (1.005-1.025) Urine Protein (Negative) Urine Ketones (NEGATIVE) Urine Blood (0-5) Venkata/ul Urine Nitrite (NEGATIVE) Urine Bilirubin (NEGATIVE) Urine Urobilinogen (0-1) mg/dL Ur Leukocyte Esterase (NEGATIVE) Urine WBC (Auto) (0-5) /HPF Urine RBC (Auto) (0-2) /HPF U Epithel Cells (Auto) (FEW) /HPF Urine Bacteria (Auto) (NEGATIVE) /HPF Urine Mucus (Auto) (NEGATIVE) /HPF Urine Culture Reflexed (NO) Urine Glucose (NEGATIVE) mg/dL Urine Opiates Level (NEGATIVE) Ur Methadone (NEGATIVE) Urine Barbiturates (NEGATIVE) Ur Phencyclidine (PCP) (NEGATIVE) Urine Amphetamine (NEGATIVE) U Benzodiazepine Level (NEGATIVE) Urine Cocaine (NEGATIVE) Urine Marijuana (THC) (NEGATIVE) 07/02/21 07/02/21 Range/Units 13:57 13:57 WBC (4.0-10.5) K/mm3 RBC (4.1-5.4) M/mm3 Hgb (12.0-16.0) gm/dl Hct (35-47) % MCV (78-100) fl MCH (26-32) pg MCHC (32-36) g/dl RDW (11.5-14.0) % Plt Count (150-450) K/mm3 MPV (7.5-11.0) fl Gran % (36.0-66.0) % Eos # (Auto) (0-0.5) Absolute Lymphs (auto) (1.0-4.6) Absolute Monos (auto) (0.0-1.3) Lymphocytes % (24.0-44.0) % Monocytes % (0.0-12.0) % Eosinophils % (0.00-5.0) % Basophils % (0.0-0.4) % Absolute Granulocytes (1.4-6.9) Basophils # (0-0.4) Sodium (137-145) mmol/L Potassium (3.5-5.1) mmol/L Chloride (98-107) mmol/L Carbon Dioxide (22-30) mmol/L Anion Gap (5-15) MEQ/L BUN (7-17) mg/dL Creatinine (0.52-1.04) mg/dL Estimated GFR ML/MIN Glucose (74-106) mg/dL Calcium (8.4-10.2) mg/dL Total Bilirubin (0.2-1.3) mg/dL AST (14-36) U/L ALT (0-35) U/L Alkaline Phosphatase (38-126) U/L Serum Total Protein (6.3-8.2) g/dL Albumin (3.5-5.0) g/dL Amylase (30-110) U/L Lipase (23-300) U/L Serum , Qual (Negative) Urine Color [place] (YELLOW) Urine Appearance CLOUDY (CLEAR) Urine pH 5.0 (5-6) Ur Specific [place] 1.027 (1.005-1.025) Urine Protein 30 (Negative) Urine Ketones MODERATE (NEGATIVE) Urine Blood NEGATIVE (0-5) Venkata/ul Urine Nitrite NEGATIVE (NEGATIVE) Urine Bilirubin SMALL (NEGATIVE) Urine Urobilinogen 4 (0-1) mg/dL Ur Leukocyte Esterase SMALL (NEGATIVE) Urine WBC (Auto) 6-10 (0-5) /HPF Urine RBC (Auto) 0-2 (0-2) /HPF U Epithel Cells (Auto) MODERATE (FEW) /HPF Urine Bacteria (Auto) RARE (NEGATIVE) /HPF Urine Mucus (Auto) MODERATE (NEGATIVE) /HPF Urine Culture Reflexed YES (NO) Urine Glucose NEGATIVE (NEGATIVE) mg/dL Urine Opiates Level NEGATIVE (NEGATIVE) Ur Methadone NEGATIVE (NEGATIVE) Urine Barbiturates NEGATIVE (NEGATIVE) Ur Phencyclidine (PCP) NEGATIVE (NEGATIVE) Urine Amphetamine NEGATIVE (NEGATIVE) U Benzodiazepine Level NEGATIVE (NEGATIVE) Urine Cocaine NEGATIVE (NEGATIVE) Urine Marijuana (THC) POSITIVE (NEGATIVE) - Progress Progress Note: 07/02/21 16:19 1gm IV Rocephin 07/02/21 16:19 1L NS bolus/4mg IV Zofran 07/02/21 20:33 Covid19 swab sent to lab Counseled pt/family regarding: lab results, diagnosis, need for follow-up, rad results - Departure Departure Disposition: Home Clinical Impression: Abdominal pain, UTI (urinary tract infection) Condition: Stable Critical Care Time: No Referrals: BRENDAN ESCALERA DO [ACTIVE STAFF] - Follow up/PCP as directed Instructions: Urinary Tract Infection, Adult (DC), Acute Abdomen (Belly Pain), Adult (DC) Additional Instructions: Macrobid twice a day for 5 days Zofran for nausea-vomiting Covid test back 2-3 days Return to ER for increasing pain or temperature greater than 100.5 Prescriptions: ondansetron HCL [Zofran] 4 mg SL Q6H PRN PRN #10 tablet PRN Reason: Nausea/Vomiting Nitrofurantoin Monohyd/M-Cryst [Macrobid 100 mg Capsule] 100 mg PO BID #10
[2021-07-02 14:20] LABS: Appearance CLOUDY (CLEAR); Bacteria RARE /HPF (NEGATIVE); Bilirubin SMALL (NEGATIVE); Blood NEGATIVE Ery/ul (0-5); Epithelial Cells MODERATE /HPF (FEW); Glucose NEGATIVE (NEGATIVE); Ketones MODERATE (NEGATIVE); Leukocyte Esterase SMALL (NEGATIVE); Mucus MODERATE /HPF (NEGATIVE); Nitrite NEGATIVE (NEGATIVE); Protein,Urine Dip 30 (Negative); RBC 0-2 /HPF (0-2); Specific Gravity 1.027 (1.005-1.025); Urobilinogen 4 mg/dL (0-1)
[2021-07-02 14:26] LABS: Amphetamine,Urine NEGATIVE (NEGATIVE); Barbiturate,Urine NEGATIVE (NEGATIVE); Benzodiazepine,Urine NEGATIVE (NEGATIVE); Cocaine,Urine NEGATIVE (NEGATIVE); Methadone,Urine NEGATIVE (NEGATIVE); Opiate,Urine NEGATIVE (NEGATIVE); PCP,Urine NEGATIVE (NEGATIVE); THC,Urine POSITIVE (NEGATIVE)
[2021-07-02] MEDS ORDERED: Sodium Chloride 0.9% 1000 ML 1,000 ML IV STA (14:43)
[2021-07-02] MEDS ORDERED: Zofran 4 MG/2 ML VIAL IV ONE (14:43)
[2021-07-02] MEDS ORDERED: Zofran 4 MG/2 ML VIAL ONE (14:50)
[2021-07-02] MEDS ORDERED: Sodium Chloride 0.9% 1000 ML 1,000 ML ONE (14:50)
--- NOTE | 2021-07-02 16:09 | XRAY ---
Indication: Right upper quadrant pain and vomiting. Multiple contiguous axial images obtained through the abdomen and pelvis using 80 cc Isovue 370 contrast. Comparison: June 07, 2021. Lung bases are now clear. Heart not enlarged. Noncontrasted stomach and bowel loops nonobstructed with normal appendix. Again cholecystectomy. No free fluid/air. Remaining liver, pancreas, spleen, adrenal glands, kidneys, ureters, bladder, and aorta are unremarkable. No pathologic retroperitoneal lymphadenopathy. Osseous structures intact. Impression: Continued negative CT abdomen/pelvis with contrast exam compared to CT abdomen/pelvis 1 month ago.
[2021-07-02 16:10] VITALS: BP 125/84
[2021-07-02] MEDS ORDERED: ROCEPHIN 1 Gm-D5w 50 ml Bag** 1 G/50 ML IVPB IV STA (16:15)
[2021-07-02] MEDS ORDERED: ROCEPHIN 1 Gm-D5w 50 ml Bag** 1 G/50 ML IVPB IV ONE (16:15)
[2021-07-02 16:51] VITALS: PULSE 72
[2021-07-02 20:34] VITALS: O2SAT 98
== END 2021-07-02 16:51 | disposition home or self-care (01) ==
LOC: ED 13:38
DX: N39.0 Urinary tract infection, site not specified (principal); R10.11 Right upper quadrant pain; R11.2 Nausea with vomiting, unspecified; K90.0 Celiac disease; Z79.899 Other long term (current) drug therapy
CPT/HCPCS: 36415; 74177; 80053; 80307; 81001; 81025; 82150; 83690; 85025; 87086; 96360; 96374; 99284; U0003; J0696; J2405

== ENCOUNTER 2021-07-14 11:06 | Observation (INO) | payer OTHER ==
[2021-07-14] MEDS ORDERED: MORPHINE SULFATE 4 MG INJ IV ONE ×2 (11:12→14:14)
[2021-07-14] MEDS ORDERED: Sodium Chloride 0.9% 1000 ML 1,000 ML IV STA (11:12)
[2021-07-14] MEDS ORDERED: ZOFRAN ODT 4 MG PO ONE (11:12)
--- NOTE | 2021-07-14 11:20 | ERPHSYRPT ---
- History of Present Illness Time Seen by Provider: 07/14/21 11:15 Historian: patient Exam Limitations: no limitations Physician History: Patient 35-year-old female presents to our ED for evaluation of epigastric pain. Epigastric pain started today. Pain described as an ache that is localized. No radiation. Pain associated with nausea and vomiting. Patient advised that she has a history of celiac disease and has had a cholecystectomy. Patient is morbidly obese. No trauma. No fever. Symptoms are constant. Symptoms are moderate in intensity. Patient rates her pain 10 out of 10. However patient is conversant. She does not appear to be in acute distress. Patient states she has had the symptoms in the past. Patient voices no other complaints or concern s at this time. Timing/Duration: today Activities at Onset: none Quality: aching Abdominal Pain Onset Location: epigastric Pain Radiation: no radiation Severity of Pain-Max: moderate Severity of Pain-Current: mild Modifying Factors: Improves With: nothing Associated Symptoms: nausea, vomiting, No diarrhea, No fever/chills Previous symptoms: same symptoms as today Allergies/Adverse Reactions: No Known Drug Allergies Allergy (Verified 07/14/21 11:17) Home Medications: Duloxetine HCl 30 mg [Cymbalta 30 MG Capsule] 60 mg PO DAILY 06/07/21 [History] Famotidine 20 mg [Pepcid 20 MG] 40 mg PO DAILY 06/07/21 [History] Gabapentin 100 mg [Neurontin 100 MG] 100 mg PO BID 06/07/21 [History] Loratadine 10 mg [Claritin 10 mg] 10 mg PO DAILY 06/07/21 [History] Paroxetine HCl 20 mg [Paxil 20 MG] 10 mg PO DAILY 06/07/21 [History] Etodolac 300 mg PO BID 07/14/21 [History] Hx Tetanus, Diphtheria Vaccination/Date Given: Yes Hx Influenza Vaccination/Date Given: No Hx Pneumococcal Vaccination/Date Given: No Travel Risk - Vaccine Status Have you recieved a Covid-19 vaccination: No - Review of Systems Constitutional: No Symptoms, No Fever, No Chills Eyes: No Symptoms Ears, Nose, & Throat: No Symptoms Respiratory: No Symptoms, No Cough, No Dyspnea Cardiac: No Symptoms, No Chest Pain, No Edema, No Syncope Abdominal/Gastrointestinal: No Symptoms, No Abdominal Pain, No Nausea, No Vomiting, No Diarrhea Genitourinary Symptoms: No Symptoms, No Dysuria Musculoskeletal: No Symptoms, No Back Pain, No Neck Pain Skin: No Symptoms, No Rash Neurological: No Symptoms, No Dizziness, No Focal Weakness, No Sensory Changes Psychological: No Symptoms Endocrine: No Symptoms Hematologic/Lymphatic: No Symptoms Immunological/Allergic: No Symptoms All Other Systems: Reviewed and Negative - Past Medical History Pertinent Past Medical History: Yes Neurological History: No Pertinent History ENT History: No Pertinent History Cardiac History: No Pertinent History Respiratory History: No Pertinent History Endocrine Medical History: No Pertinent History Musculoskeletal History: No Pertinent History GI Medical History: Other History: No Pertinent History Psycho-Social History: Depression Female Reproductive Disorders: No Pertinent History Other Medical History: chronic back, celiac disease, 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 - Social History Smoking Status: Never smoker Exposure to second hand smoke: Yes Drug Use: none Patient Lives Alone: Yes Significant Family History: no pertinent family hx - Female History Hx Now: No - Nursing Vital Signs Nursing Vital Signs: Initial Vital Signs Temperature 95.5 F 07/14/21 11:08 Pulse Rate 78 07/14/21 11:08 Respiratory Rate 22 07/14/21 11:08 Blood Pressure 141/86 07/14/21 11:08 O2 Sat by Pulse Oximetry 98 07/14/21 11:08 Pain Scale Pain Intensity 4 - Physical Exam General Appearance: no apparent distress, alert, other (Carious teeth primarily the upper maxillary incisors) Eye Exam: PERRL/EOMI, eyes nml inspection Ears, Nose, Throat Exam: normal ENT inspection, pharynx normal, moist mucous membranes Neck Exam: normal inspection, non-tender, supple, full range of motion Respiratory Exam: normal breath sounds, lungs clear, airway intact, No respiratory distress Cardiovascular Exam: regular rate/rhythm, normal heart sounds, normal peripheral pulses Gastrointestinal/Abdomen Exam: soft, normal bowel sounds, tenderness (Epigastric tenderness to palpation.), No mass, No hernia Pelvic Exam: not done Rectal Exam: not done Back Exam: normal inspection, normal range of motion, No CVA tenderness, No vertebral tenderness Extremity Exam: normal inspection, normal range of motion, pelvis stable Neurologic Exam: alert, oriented x 3, cooperative, normal mood/affect, nml cerebellar function, sensation nml, No motor deficits Skin Exam: normal color, warm, dry Lymphatic Exam: adenopathy SpO2 Interpretation: normal SpO2: 98 O2 Delivery: Room Air - Course Nursing assessment & vital signs reviewed: Yes - CT Exams Abdomen/Pelvis CT Interpretation: Tele-radiologist Report (Lungs remain clear. Heart is not enlarged. Small hiatal hernia noncontrasted stomach and bowel loops remain nonobstructed with normal appendix. Again previous cholecystectomy. No free fluid or air. Remaining liver pancreas spleen adrenal glands kidneys ureters bladder uterus and aorta are unrem) Ordered Tests: Active Orders 24 hr Category Date Time Status IV Insertion STAT Care 07/14/21 11:12 Completed ABDOMEN AND PELVIS W CONTRAST [CT] Stat Exams 07/14/21 11:14 Completed CBC W DIFF Stat Lab 07/14/21 11:34 Completed CMP Stat Lab 07/14/21 11:34 Completed HCG,QUALITATIVE URINE Stat Lab 07/14/21 11:39 Completed LIPASE Stat Lab 07/14/21 11:34 Completed TROPONIN Q3H Lab 07/14/21 11:34 Completed TROPONIN Q3H Lab 07/14/21 19:00 Completed TROPONIN Q3H Lab 07/14/21 21:50 Completed TROPONIN Q3H Lab 07/15/21 01:00 Completed TROPONIN Q3H Lab 07/15/21 04:30 Completed UA W/RFX UR CULTURE Stat Lab 07/14/21 11:39 Received Medication Summary Generic Name Dose Route Start Last Admin Trade Name Freq PRN Reason Stop Dose Admin Acetaminophen 650 mg 07/14/21 19:59 Acetaminophen 325 Mg Tablet PO 08/13/21 19:58 Q4H PRN PRN PAIN AND/OR FEVER Gabapentin 300 mg 07/14/21 22:00 07/15/21 01:37 Gabapentin 300 Mg Capsule PO 08/13/21 21:59 Not Given BID CONSTANTINE Hydromorphone HCl 0.5 mg 07/14/21 21:30 07/15/21 06:05 Hydromorphone 1 Mg/1ml Inj 1 Mg/Ml Syringe IV 07/19/21 21:29 0.5 mg Q4H PRN PRN Administration PAIN Sodium Chloride 1,000 mls @ 100 mls/hr 07/14/21 20:00 07/15/21 06:06 Sodium Chloride 0.9% 1000 Ml IV 08/13/21 19:59 100 mls/hr .Q10H CONSTANTINE Administration Ondansetron HCl 4 mg 07/14/21 19:59 07/15/21 06:05 Ondansetron Hcl 4 Mg/2 Ml Vial IV 08/13/21 19:58 4 mg Q6H PRN PRN Administration NAUSEA/VOMITING Pantoprazole Sodium 40 mg 07/14/21 22:00 07/14/21 22:05 Pantoprazole 40 Mg Vial IV 08/13/21 21:59 40 mg Q24H10 CONSTANTINE Administration Scopolamine HBr 1.5 mg 07/14/21 21:59 07/14/21 22:07 Scopolamine 1.5 Mg Patch TOP 07/14/21 22:00 1.5 mg STAT ONE Administration Discontinued Medications Generic Name Dose Route Start Last Admin Trade Name Freq PRN Reason Stop Dose Admin Al Hydrox/Mg Hydrox/Simethicone Confirm 07/14/21 14:17 Mag Hydrox/Al Hydrox/Simeth 30 Ml Udcup Administered 07/14/21 14:18 Dose 30 ml .ROUTE .STK-MED ONE Sodium Chloride 1,000 mls @ 999 mls/hr 07/14/21 11:12 07/14/21 13:00 Sodium Chloride 0.9% 1000 Ml IV 07/14/21 12:12 Infused .Q1H1M STA Infusion Sodium Chloride Confirm 07/14/21 11:29 Sodium Chloride 0.9% 1000 Ml Administered 07/14/21 11:30 Dose 1,000 mls @ ud .ROUTE .STK-MED ONE Lidocaine HCl Confirm 07/14/21 14:17 Lidocaine Hcl 1% 20 Ml Mdv 20 Ml Ml Administered 07/14/21 14:18 Dose 15 ml .ROUTE .STK-MED ONE Lidocaine HCl Confirm 07/14/21 14:18 Lidocaine Hcl Viscous 1 Ml Administered 07/14/21 14:19 Dose 15 ml .ROUTE .STK-MED ONE Magnesium Hydroxide 45 ml 07/14/21 14:14 07/14/21 14:23 Mag Hydrx/Alum Hyd/Simeth/Lido 45 Ml Bottle PO 07/14/21 14:15 45 ml STAT ONE Administration Morphine Sulfate 4 mg 07/14/21 11:12 07/14/21 11:31 Morphine Sulfate 4 Mg/Ml Injection IV 07/14/21 11:13 4 mg STAT ONE Administration Morphine Sulfate Confirm 07/14/21 11:29 Morphine Sulfate 4 Mg/Ml Injection Administered 07/14/21 11:30 Dose 4 mg .ROUTE .STK-MED ONE Morphine Sulfate 4 mg 07/14/21 14:14 07/14/21 14:23 Morphine Sulfate 4 Mg/Ml Injection IV 07/14/21 14:15 4 mg STAT ONE Administration Morphine Sulfate Confirm 07/14/21 14:17 Morphine Sulfate 4 Mg/Ml Injection Administered 07/14/21 14:18 Dose 4 mg .ROUTE .STK-MED ONE Morphine Sulfate 4 mg 07/14/21 19:59 07/14/21 20:29 Morphine Sulfate 4 Mg/Ml Injection IV 07/19/21 19:58 4 mg Q4H PRN PRN Administration PAIN Morphine Sulfate Confirm 07/14/21 20:27 Morphine Sulfate 4 Mg/Ml Injection Administered 07/14/21 20:28 Dose 4 mg .ROUTE .STK-MED ONE Ondansetron HCl 4 mg 07/14/21 11:12 07/14/21 11:30 Zofran 4 Mg/Udtablet Orally Disintegrating PO 07/14/21 11:13 Not Given STAT ONE Ondansetron HCl 4 mg 07/14/21 11:30 07/14/21 11:31 Ondansetron Hcl 4 Mg/2 Ml Vial IV 07/14/21 11:31 4 mg STAT ONE Administration Ondansetron HCl Confirm 07/14/21 11:29 Ondansetron Hcl 4 Mg/2 Ml Vial Administered 07/14/21 11:30 Dose 4 mg .ROUTE .STK-MED ONE Ondansetron HCl 4 mg 07/14/21 18:55 07/14/21 18:58 Ondansetron Hcl 4 Mg/2 Ml Vial IV 07/14/21 18:56 4 mg STAT ONE Administration Ondansetron HCl Confirm 07/14/21 18:56 Ondansetron Hcl 4 Mg/2 Ml Vial Administered 07/14/21 18:57 Dose 4 mg .ROUTE .STK-MED ONE Pantoprazole Sodium 40 mg 07/15/21 10:00 Pantoprazole 40 Mg Vial IV 08/14/21 09:59 Q24H10 [facility] Lab/Rad Data: Laboratory Result Diagrams 07/14/21 11:34 07/14/21 11:34 Laboratory Results 07/14/21 07/14/21 07/14/21 Range/Units 19:00 17:06 11:39 WBC (4.0-10.5) K/mm3 RBC (4.1-5.4) M/mm3 Hgb (12.0-16.0) gm/dl Hct (35-47) % MCV (78-100) fl MCH (26-32) pg MCHC (32-36) g/dl RDW (11.5-14.0) % Plt Count (150-450) K/mm3 MPV (7.5-11.0) fl Gran % (36.0-66.0) % Eos # (Auto) (0-0.5) Absolute Lymphs (auto) (1.0-4.6) Absolute Monos (auto) (0.0-1.3) Lymphocytes % (24.0-44.0) % Monocytes % (0.0-12.0) % Eosinophils % (0.00-5.0) % Basophils % (0.0-0.4) % Absolute Granulocytes (1.4-6.9) Basophils # (0-0.4) Sodium (137-145) mmol/L Potassium (3.5-5.1) mmol/L Chloride (98-107) mmol/L Carbon Dioxide (22-30) mmol/L Anion Gap (5-15) MEQ/L BUN (7-17) mg/dL Creatinine (0.52-1.04) mg/dL Estimated GFR ML/MIN Glucose (74-106) mg/dL Calcium (8.4-10.2) mg/dL Total Bilirubin (0.2-1.3) mg/dL AST (14-36) U/L ALT (0-35) U/L Alkaline Phosphatase (38-126) U/L Troponin I < 0.012 (0.000-0.034) ng/mL Serum Total Protein (6.3-8.2) g/dL Albumin (3.5-5.0) g/dL Lipase (23-300) U/L Urine HCG, Qual NEGATIVE (Negative) Influenza Type A Ag NEGATIVE (NEGATIVE) Influenza Type B Ag NEGATIVE (NEGATIVE) RSV (PCR) NEGATIVE (Negative) SARS-CoV-2 (PCR) NEGATIVE (NEGATIVE) 07/14/21 07/14/21 07/14/21 Range/Units 11:34 11:34 11:34 WBC 16.1 H (4.0-10.5) K/mm3 RBC 5.26 (4.1-5.4) M/mm3 Hgb 14.2 (12.0-16.0) gm/dl Hct 43.8 (35-47) % MCV 83.3 (78-100) fl MCH 27.0 (26-32) pg MCHC 32.4 (32-36) g/dl RDW 16.9 H (11.5-14.0) % Plt Count 286 (150-450) K/mm3 MPV 11.7 H (7.5-11.0) fl Gran % 79.7 H (36.0-66.0) % Eos # (Auto) 0.01 (0-0.5) Absolute Lymphs (auto) 1.96 (1.0-4.6) Absolute Monos (auto) 1.26 (0.0-1.3) Lymphocytes % 12.2 L (24.0-44.0) % Monocytes % 7.9 (0.0-12.0) % Eosinophils % 0.1 (0.00-5.0) % Basophils % 0.1 (0.0-0.4) % Absolute Granulocytes 12.80 H (1.4-6.9) Basophils # 0.02 (0-0.4) Sodium 141 (137-145) mmol/L Potassium 3.8 (3.5-5.1) mmol/L Chloride 109 H (98-107) mmol/L Carbon Dioxide 19 L (22-30) mmol/L Anion Gap 16.2 H (5-15) MEQ/L BUN 6 L (7-17) mg/dL Creatinine 0.48 L (0.52-1.04) mg/dL Estimated GFR > 60.0 ML/MIN Glucose 125 H (74-106) mg/dL Calcium 9.4 (8.4-10.2) mg/dL Total Bilirubin 1.20 (0.2-1.3) mg/dL AST 54 H (14-36) U/L ALT 30 (0-35) U/L Alkaline Phosphatase 154 H (38-126) U/L Troponin I < 0.012 (0.000-0.034) ng/mL Serum Total Protein 7.4 (6.3-8.2) g/dL Albumin 4.3 (3.5-5.0) g/dL Lipase 105 (23-300) U/L Urine HCG, Qual (Negative) Influenza Type A Ag (NEGATIVE) Influenza Type B Ag (NEGATIVE) RSV (PCR) (Negative) SARS-CoV-2 (PCR) (NEGATIVE) - Progress Progress: improved Progress Note: Patient reassessed. Patient able to tolerate p.o. Patient still experiencing some epigastric pain. Leukocytosis. In light of ongoing symptoms we will admit patient for intractable nausea and vomiting. Case discussed with Dr. Patterson who accepts admission to observation. Plan of care discussed with patient. She agrees admission psychotic [facility] for further evaluation and treatment. Covid negative Portions of this note were created with voice recognition technology. There may be grammatical, spelling, punctuation or sound alike errors 07/15/21 07:[address] Leslie Will see patient in: hospital (observation) Counseled pt/family regarding: lab results, diagnosis, need for follow-up, rad results - Departure Departure Disposition: Observation Clinical Impression: Hiatal hernia, Abdominal pain, Leukocytosis, Gastroenteritis, Intractable n ausea and vomiting Condition: Stable Critical Care Time: No
[2021-07-14] MEDS ORDERED: Sodium Chloride 0.9% 1000 ML 1,000 ML ONE (11:29)
[2021-07-14] MEDS ORDERED: MORPHINE SULFATE 4 MG INJ ONE ×3 (11:29→20:27)
[2021-07-14] MEDS ORDERED: Zofran 4 MG/2 ML VIAL ONE ×2 (11:29→18:56)
[2021-07-14] MEDS ORDERED: Zofran 4 MG/2 ML VIAL IV ONE ×2 (11:30→18:55)
[2021-07-14 11:41] LABS: Basophil (Absolute #) 0.02 (0-0.4); Eosinophil % 0.1 % (0.00-5.0); Eosinophil (Absolute #) 0.01 (0-0.5); Hematocrit 43.8 % (35-47); Hemoglobin 14.2 gm/dl (12.0-16.0); Lymphocyte (Absolute #) 1.96 (1.0-4.6); Lymphocytes % 12.2 % (24.0-44.0); Mean Cell Volume 83.3 fl (78-100); Mean Corpuscular Hgb Concent. 32.4 g/dl (32-36); Mean Platelet Volume 11.7 fl (7.5-11.0); Monocyte (Absolute #) 1.26 (0.0-1.3); Monocytes % 7.9 % (0.0-12.0); Neutrophil % 79.7 % (36.0-66.0); Platelet Count 286 K/mm3 (150-450); Red Blood Count 5.26 M/mm3 (4.1-5.4); Red Cell Distribution Width 16.9 % (11.5-14.0); White Blood Count 16.1 K/mm3 (4.0-10.5)
[2021-07-14 11:48] LABS: ALBUMIN 4.3 g/dL (3.5-5.0); ALKALINE PHOSPHATASE 154 U/L (38-126); ANION GAP 16.2 MEQ/L (5-15); BLOOD UREA NITROGEN 6 mg/dL (7-17); CHLORIDE 109 mmol/L (98-107); Calcium 9.4 mg/dL (8.4-10.2); Carbon Dioxide 19 mmol/L (22-30); Creatinine 1 0.48 mg/dL (0.52-1.04); EST GLOMERULAR FILTRATION RATE > 60.0 ML/MIN; Glucose 125 mg/dL (74-106); LIPASE 105 U/L (23-300); Potassium 3.8 mmol/L (3.5-5.1); SGOT/AST 54 U/L (14-36); SGPT/ALT 30 U/L (0-35); SODIUM 141 mmol/L (137-145); Total Protein 7.4 g/dL (6.3-8.2)
--- NOTE | 2021-07-14 13:29 | XRAY ---
Indication: Epigastric pain. Nausea and vomiting. Multiple contiguous images obtained through the abdomen and pelvis using 80 cc Isovue 370 contrast. Comparison: June 07, 2021 and July 02, 2021. Lung bases remain clear. Heart is not enlarged. Again small hiatal hernia. Noncontrasted stomach and bowel loops remain nonobstructed with normal appendix. Again previous cholecystectomy. No free fluid/air. Remaining liver, pancreas, spleen, adrenal glands, kidneys, ureters, bladder, uterus, and aorta are unremarkable. No pathologic retroperitoneal lymphadenopathy. Impression: Small hiatal hernia. Remaining CT abdomen/pelvis with contrast exam is again negative.
[2021-07-14] MEDS ORDERED: GI COCKTAIL 45 ML (Maalox/Lidocaine) PO ONE (14:14)
[2021-07-14] MEDS ORDERED: XYLOCAINE 1% HCL 20 ML MDV ONE (14:17)
[2021-07-14] MEDS ORDERED: MAALOX ES 30 ML UNIT DOSE ONE (14:17)
[2021-07-14] MEDS ORDERED: XYLOCAINE HCl Viscous ONE (14:18)
[2021-07-14 18:00] LABS: INFLUENZA A NEGATIVE (NEGATIVE); INFLUENZA B NEGATIVE (NEGATIVE); RESPIRATORY SYNCTIAL VIRUS NEGATIVE (Negative); SARS-CoV-2 Xpert Express NEGATIVE (NEGATIVE)
[2021-07-14] MEDS ORDERED: MORPHINE SULFATE 4 MG INJ IV PRN (19:59)
[2021-07-14] MEDS ORDERED: TYLENOL 325 MG PO PRN (19:59)
[2021-07-14] MEDS: Zofran 4 MG/2 ML VIAL IV PRN (20:29)
[2021-07-14] MEDS: Sodium Chloride 0.9% 1000 ML 1,000 ML IV SCH (20:30)
[2021-07-14] MEDS ORDERED: Transderm Scop 1.5MG Patch TOP ONE (21:59)
[2021-07-14] MEDS ORDERED: NEURONTIN 300 MG PO SCH (22:00)
[2021-07-14] MEDS: PROTONIX 40 MG IV IV SCH (22:05)
[2021-07-14] MEDS: Hydromorphone 1 mg/ml Injection IV PRN (22:05)
[2021-07-15 04:45] LABS: Absolute Neutrophil Ct (ANC) 8.99 (1.4-6.9); Basophil (Absolute #) 0.01 (0-0.4); Eosinophil % 0.1 % (0.00-5.0); Eosinophil (Absolute #) 0.01 (0-0.5); Hematocrit 39.1 % (35-47); Hemoglobin 12.3 gm/dl (12.0-16.0); Lymphocyte (Absolute #) 2.45 (1.0-4.6); Lymphocytes % 19.4 % (24.0-44.0); Mean Corpuscular Hemoglobin 26.7 pg (26-32); Mean Corpuscular Hgb Concent. 31.5 g/dl (32-36); Mean Platelet Volume 11.2 fl (7.5-11.0); Monocyte (Absolute #) 1.18 (0.0-1.3); Monocytes % 9.3 % (0.0-12.0); Neutrophil % 71.1 % (36.0-66.0); Platelet Count 221 K/mm3 (150-450); Red Cell Distribution Width 17.2 % (11.5-14.0); White Blood Count 12.6 K/mm3 (4.0-10.5)
[2021-07-15 04:57] LABS: ALBUMIN 3.5 g/dL (3.5-5.0); ALKALINE PHOSPHATASE 112 U/L (38-126); ANION GAP 12.2 MEQ/L (5-15); BLOOD UREA NITROGEN 5 mg/dL (7-17); CHLORIDE 107 mmol/L (98-107); Calcium 8.4 mg/dL (8.4-10.2); Carbon Dioxide 23 mmol/L (22-30); EST GLOMERULAR FILTRATION RATE > 60.0 ML/MIN; Glucose 98 mg/dL (74-106); Potassium 3.5 mmol/L (3.5-5.1); SGOT/AST 32 U/L (14-36); SGPT/ALT 22 U/L (0-35); SODIUM 138 mmol/L (137-145); Total Protein 6.4 g/dL (6.3-8.2)
[2021-07-15] MEDS: Hydromorphone 1 mg/ml Injection IV PRN ×2 (06:05→11:28)
[2021-07-15] MEDS: Zofran 4 MG/2 ML VIAL IV PRN ×2 (06:05→11:27)
[2021-07-15] MEDS: Sodium Chloride 0.9% 1000 ML 1,000 ML IV SCH (06:06)
[2021-07-15] MEDS ORDERED: PROTONIX 40 MG IV IV SCH (10:00)
[2021-07-15] MEDS: PROTONIX 40 MG IV IV SCH ×2 (10:58→11:27)
[2021-07-15] MEDS: Pepcid 20 MG PO SCH (11:27)
[2021-07-15] MEDS: Paxil 20 MG PO SCH (11:27)
[2021-07-15] MEDS: CLARITIN 10 MG PO SCH (11:27)
[2021-07-15] MEDS: Cymbalta 30 MG Capsule PO SCH (11:28)
[2021-07-15] MEDS ORDERED: Neurontin 100 MG PO ONE (14:15)
[2021-07-15] MEDS ORDERED: Zofran 4 MG/2 ML VIAL IV STA (14:56)
[2021-07-15] MEDS ORDERED: Hydromorphone 1 mg/ml Injection IV ONE (14:56)
[2021-07-15] MEDS: DILAUDID 1 MG/1ML PCA IV PRN (16:02)
[2021-07-15] MEDS ORDERED: PROMETHEGAN RC PRN (16:15)
--- NOTE | 2021-07-15 18:54 | PCM.HP ---
History of Present Illness - Chief Complaint Chief Complaint: nausea and vomiting History of Present Illness: Late entry for 07/15/21 at 0830. is a 35 year old female pt with celiac disease, hiatal hernia, and morbid obesity who was admitted through ER with gastroenteritis. CT abd/pelvis was negative for acute findings. WBC count 16.1 on admission and 12.6 this morning. She had epigastric pain and nausea, which she has about every 2 weeks. Was taking zofran without relief; phenergan helped a bit more. She was worried about because she miscarried last year, but her urine hcg was negative. Two days ago, she had decreased appetite, then she woke up yesterday vomiting, with epigastric pain "20/10" nonradiating, with diaphoresis. She was "out of it" yesterday, which is unusual. She was not vomiting when she first came to the [facility] floor, then had some vomiting with a popsicle. She has a hx cholecystectomy and a hx of remote drug use. She notes her fiance has hepatitis B and C and she would like to be tested. - Review of Systems Constitutional: Fatigue Respiratory: Cough (exposed to second hand smoke) Abdominal/Gastrointestinal: Abdominal Pain, Nausea, Vomiting, Diarrhea (greasy, yellow stools) Genitourinary Symptoms: Incontinence (new - getting workup with PCP) Skin: Rash (few blisters medial upper thighs) Psychological: Depression, No Suicidal Ideations, No Homicidal Ideations Medications & Allergies Home Medications: Home Medication List Duloxetine HCl 30 mg [Cymbalta 30 MG Capsule] 60 mg PO DAILY 06/07/21 [History Confirmed 07/14/21] Famotidine 20 mg [Pepcid 20 MG] 40 mg PO DAILY 06/07/21 [History Confirmed 07/14/21] Gabapentin 100 mg [Neurontin 100 MG] 100 mg PO BID 06/07/21 [History Confirmed 07/14/21] Loratadine 10 mg [Claritin 10 mg] 10 mg PO DAILY 06/07/21 [History Confirmed 07/14/21] Paroxetine HCl 20 mg [Paxil 20 MG] 10 mg PO DAILY 06/07/21 [History Confirmed 07/14/21] ondansetron HCL [Zofran] 4 mg SL Q6H PRN PRN #10 tablet 07/02/21 [Rx Confirmed 07/14/21] Etodolac 300 mg PO BID 07/14/21 [History Confirmed 07/14/21] Allergies/Adverse Reactions: Allergies Allergy/AdvReac Type Severity Reaction Status Date / Time No Known Drug Allergies Allergy Verified 07/14/21 11:17 - Past Medical History Past Medical History: Yes Neurological History: No Pertinent History ENT History: No Pertinent History Cardiac History: No Pertinent History Respiratory History: No Pertinent History Endocrine Medical History: No Pertinent History Musculoskelatal History: No Pertinent History GI Medical History: Other History: No Pertinent History Pyscho-Social History: Depression Reproductive Disorders: No Pertinent History Comment: chronic back, celiac disease, 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 - Social History Smoking Status: Never smoker How long have you smoked: 4 years Exposure to second hand smoke: Yes Alcohol: Rarely Drug Use: none Significant Family History: no pertinent family hx - Physical Exam Vital Signs: Vital Signs - 24 hr Temp Pulse Resp BP Pulse Ox 07/15/21 16:02 97 07/15/21 16:00 97.1 F 83 13 119/58 99 07/15/21 12:00 97.7 F 67 19 111/58 95 07/15/21 08:00 97.7 F 73 20 111/57 95 07/15/21 07:03 98 07/15/21 04:00 98.0 F 86 16 97/55 98 07/15/21 00:01 92 L 07/14/21 23:57 98.0 F 74 18 115/58 95 07/14/21 20:11 98.0 F 76 20 140/66 97 General Appearance: no apparent distress, alert, obese Neurologic Exam: oriented x 3, cooperative Eye Exam: PERRL/EOMI, eyes nml inspection Ears, Nose, Throat Exam: moist mucous membranes Neck Exam: normal inspection, non-tender, other (chin is hirsute), No lymphadenopathy Respiratory Exam: normal breath sounds, lungs clear, No crackles/rales, No rhonchi, No wheezing Cardiovascular Exam: regular rate/rhythm, normal heart sounds, No murmur Gastrointestinal/Abdomen Exam: soft, No normal bowel sounds (decreased but present), No tenderness, No distention, No mass, No guarding, No rebound Extremity Exam: normal inspection, other (R medial proximal thigh with small erythematous papule with yellow puncta), No pedal edema, No swelling Skin Exam: warm, dry Results - Labs Lab/Micro Results: Lab Results-Last 24 Hours 07/14/21 07/14/21 07/15/21 Range/Units 19:00 21:50 01:00 WBC (4.0-10.5) K/mm3 RBC (4.1-5.4) M/mm3 Hgb (12.0-16.0) gm/dl Hct (35-47) % MCV (78-100) fl MCH (26-32) pg MCHC (32-36) g/dl RDW (11.5-14.0) % Plt Count (150-450) K/mm3 MPV (7.5-11.0) fl Gran % (36.0-66.0) % Eos # (Auto) (0-0.5) Absolute Lymphs (auto) (1.0-4.6) Absolute Monos (auto) (0.0-1.3) Lymphocytes % (24.0-44.0) % Monocytes % (0.0-12.0) % Eosinophils % (0.00-5.0) % Basophils % (0.0-0.4) % Absolute Granulocytes (1.4-6.9) Basophils # (0-0.4) Sodium (137-145) mmol/L Potassium (3.5-5.1) mmol/L Chloride (98-107) mmol/L Carbon Dioxide (22-30) mmol/L Anion Gap (5-15) MEQ/L BUN (7-17) mg/dL Creatinine (0.52-1.04) mg/dL Estimated GFR ML/MIN Glucose (74-106) mg/dL Calcium (8.4-10.2) mg/dL Total Bilirubin (0.2-1.3) mg/dL AST (14-36) U/L ALT (0-35) U/L Alkaline Phosphatase (38-126) U/L Troponin I < 0.012 < 0.012 < 0.012 (0.000-0.034) ng/mL Serum Total Protein (6.3-8.2) g/dL Albumin (3.5-5.0) g/dL 07/15/21 07/15/21 07/15/21 Range/Units 04:30 04:30 04:30 WBC 12.6 H (4.0-10.5) K/mm3 RBC 4.60 (4.1-5.4) M/mm3 Hgb 12.3 (12.0-16.0) gm/dl Hct 39.1 (35-47) % MCV 85.0 (78-100) fl MCH 26.7 (26-32) pg MCHC 31.5 L (32-36) g/dl RDW 17.2 H (11.5-14.0) % Plt Count 221 (150-450) K/mm3 MPV 11.2 H (7.5-11.0) fl Gran % 71.1 H (36.0-66.0) % Eos # (Auto) 0.01 (0-0.5) Absolute Lymphs (auto) 2.45 (1.0-4.6) Absolute Monos (auto) 1.18 (0.0-1.3) Lymphocytes % 19.4 L (24.0-44.0) % Monocytes % 9.3 (0.0-12.0) % Eosinophils % 0.1 (0.00-5.0) % Basophils % 0.1 (0.0-0.4) % Absolute Granulocytes 8.99 H (1.4-6.9) Basophils # 0.01 (0-0.4) Sodium 138 (137-145) mmol/L Potassium 3.5 (3.5-5.1) mmol/L Chloride 107 (98-107) mmol/L Carbon Dioxide 23 (22-30) mmol/L Anion Gap 12.2 (5-15) MEQ/L BUN 5 L (7-17) mg/dL Creatinine 0.50 L (0.52-1.04) mg/dL Estimated GFR > 60.0 ML/MIN Glucose 98 (74-106) mg/dL Calcium 8.4 (8.4-10.2) mg/dL Total Bilirubin 1.00 (0.2-1.3) mg/dL AST 32 (14-36) U/L ALT 22 (0-35) U/L Alkaline Phosphatase 112 (38-126) U/L Troponin I (0.000-0.034) ng/mL Serum Total Protein 6.4 (6.3-8.2) g/dL Albumin 3.5 (3.5-5.0) g/dL - Radiology Impressions Radiology Exams & Impressions: Radiology Procedures Category Date Time Status ABDOMEN AND PELVIS W CONTRAST [CT] Stat Exams 07/14/21 11:14 Completed Assessment/Plan (1) Nausea & vomiting Current Visit: Yes Status: Acute Qualifiers: Vomiting type: unspecified Qualified Code(s): R11.2 - Nausea with vomiting, unspecified Code(s): R11.2 - NAUSEA WITH VOMITING, UNSPECIFIED (2) Abdominal pain Current Visit: Yes Status: Acute Qualifiers: Abdominal location: epigastric Qualified Code(s): R10.13 - Epigastric pain Code(s): R10.9 - UNSPECIFIED ABDOMINAL PAIN (3) Gastroenteritis Current Visit: Yes Status: Acute Code(s): K52.9 - NONINFECTIVE GASTROENTERI TIS AND COLITIS, UNSPECIFIED (4) Folliculitis Current Visit: Yes Status: Acute Assessment & Plan: start antibiotic; po if she can tolerate Code(s): L73.9 - FOLLICULAR DISORDER, UNSPECIFIED (5) Urinary incontinence Current Visit: Yes Status: Acute Qualifiers: Urinary Incontinence type: unspecified incontinence Qualified Code(s): R32 - Unspecified urinary incontinence Assessment & Plan: getting OP workup Code(s): R32 - UNSPECIFIED URINARY INCONTINENCE (6) Exposure to hepatitis Current Visit: Yes Status: Chronic Assessment & Plan: check hepatitis panel Code(s): Z20.5 - CONTACT WITH AND (SUSPECTED) EXPOSURE TO VIRAL HEPATITIS (7) Celiac disease Current Visit: Yes Status: Chronic Code(s): K90.0 - CELIAC DISEASE (8) Morbid obesity Current Visit: Yes Status: Chronic Code(s): E66.01 - MORBID (SEVERE) OBESITY DUE TO EXCESS CALORIES (9) Hiatal hernia Current Visit: Yes Status: Acute Code(s): K44.9 - DIAPHRAGMATIC HERNIA WITHOUT OBSTRUCTION OR GANGRENE (10) Leukocytosis Current Visit: Yes Status: Acute Qualifiers: Leukocytosis type: unspecified Qualified Code(s): D72.829 - Elevated white blood cell count, unspecified Assessment & Plan: improved; check in a.m. Code(s): D72.829 - ELEVATED WHITE BLOOD CELL COUNT, UNSPECIFIED
[2021-07-15] MEDS ORDERED: ROCEPHIN 1 Gm-D5w 50 ml Bag** 1 G/50 ML IVPB IV SCH (18:55)
[2021-07-15] MEDS: Neurontin 100 MG PO SCH (21:41)
[2021-07-16] MEDS: Sodium Chloride 0.9% 1000 ML 1,000 ML IV SCH ×2 (01:46→17:43)
[2021-07-16] MEDS: Zofran 4 MG/2 ML VIAL IV PRN ×3 (03:56→22:43)
[2021-07-16 08:11] LABS: HBsAg Screen Negative (Negative); Hep A Ab, IgM Negative (Negative); Hep B Core Ab, IgM Negative (Negative)
--- NOTE | 2021-07-16 08:20 | PCM.NOTE ---
Date and Time: 07/16/21814 Subjective Assessment: Pt had increased abd pain yesterday afternoon, was started on dilaudid BUSINESS INSURANCE AGENT, then only had to use it x2 yesterday. Abd pain 5/10 currently; was 7/10 yesterday and she notes it is still present but improved. Still having a little nausea, but had VT phenergan yesterday x 1 and it improved after that. She had increased nausea after taking her meds last night. - Review of Systems Constitutional: No Fever Abdominal/Gastrointestinal: Abdominal Pain, Nausea, Vomiting Objective Exam General Appearance: no apparent distress, alert Neurologic Exam: oriented x 3, cooperative Skin Exam: normal color, warm, dry, No rash Eye Exam: eyes nml inspection Ears, Nose, Throat Exam: moist mucous membranes Neck Exam: normal inspection Respiratory Exam: normal breath sounds, lungs clear, No crackles/rales, No rhonchi, No wheezing Cardiovascular Exam: regular rate/rhythm, normal heart sounds, No murmur Gastrointestinal/Abdomen Exam: soft, tenderness (epigastrum), No normal bowel sounds (hypoactive but present), No distention, No mass, No guarding, No rebound Extremity Exam: No pedal edema, No swelling OBJECTIVE DATA Vital Signs: Vital Signs - 24 hr Temp Pulse Resp BP Pulse Ox 07/16/21 07:35 97.1 F 68 18 154/66 96 07/16/21 04:00 97.1 F 81 16 139/83 99 07/16/21 00:01 95 07/16/21 00:00 97.2 F 79 19 122/61 96 07/15/21 20:02 99 07/15/21 20:00 98.1 F 70 19 119/63 95 07/15/21 16:02 97 07/15/21 16:00 97.1 F 83 13 119/58 99 07/15/21 12:00 97.7 F 67 19 111/58 95 Pain Assessment - Last Documented Pain Intensity 2 Pain Scale Used 0-10 Pain Scale Intake and Output: Intake & Output 07/13/21 07/14/21 07/15/21 07/16/21 11:59 11:59 11:59 11:59 Intake Total 1270 2893 Output Total 1200 Balance 1270 1693 Weight 113.6 kg 114 kg Radiology Exams: Radiology Procedures Category Date Time Status ABDOMEN AND PELVIS W CONTRAST [CT] Stat Exams 07/14/21 11:14 Completed Assessment/Plan (1) Nausea & vomiting Current Visit: Yes Status: Acute Qualifiers: Vomiting type: unspecified Qualified Code(s): R11.2 - Nausea with vomiting, unspecified Assessment & Plan: improved; will continue IV fluids. Continue dilaudid BUSINESS INSURANCE AGENT for now; on admission when she had morphine it was ineffective. She has taken tramadol in the past with relief, so if she is not requiring any IV meds this morning and is tolerating po would consider changing the pain med to tramadol this afternoon. Code(s): R11.2 - NAUSEA WITH VOMITING, UNSPECIFIED (2) Abdominal pain Current Visit: Yes Status: Acute Qualifiers: Abdominal location: epigastric Qualified Code(s): R10.13 - Epigastric pain Code(s): R10.9 - UNSPECIFIED ABDOMINAL PAIN (3) Gastroenteritis Current Visit: Yes Status: Acute Code(s): K52.9 - NONINFECTIVE GASTROENTERITIS AND COLITIS, UNSPECIFIED (4) Folliculitis Current Visit: Yes Status: Acute Assessment & Plan: on IV rocephin. change to doxycycline when tolerating po. Code(s): L73.9 - FOLLICULAR DISORDER, UNSPECIFIED (5) Urinary incontinence Current Visit: Yes Status: Chronic Qualifiers: Urinary Incontinence type: unspecified incontinence Qualified Code(s): R32 - Unspecified urinary incontinence Code(s): R32 - UNSPECIFIED URINARY INCONTINENCE (6) Exposure to hepatitis Current Visit: Yes Status: Chronic Code(s): Z20.5 - CONTACT WITH AND (SUSPE CTED) EXPOSURE TO VIRAL HEPATITIS (7) Celiac disease Current Visit: Yes Status: Chronic Code(s): K90.0 - CELIAC DISEASE (8) Morbid obesity Current Visit: Yes Status: Chronic Code(s): E66.01 - MORBID (SEVERE) OBESITY DUE TO EXCESS CALORIES (9) Hiatal hernia Current Visit: Yes Status: Acute Code(s): K44.9 - DIAPHRAGMATIC HERNIA WITHOUT OBSTRUCTION OR GANGRENE (10) Leukocytosis Current Visit: Yes Status: Acute Qualifiers: Leukocytosis type: unspecified Qualified Code(s): D72.829 - Elevated white blood cell count, unspecified Assessment & Plan: rechecking Code(s): D72.829 - ELEVATED WHITE BLOOD CELL COUNT, UNSPECIFIED
[2021-07-16 08:25] LABS: ANION GAP 7.8 MEQ/L (5-15); BLOOD UREA NITROGEN 5 mg/dL (7-17); CHLORIDE 106 mmol/L (98-107); Calcium 8.1 mg/dL (8.4-10.2); Carbon Dioxide 25 mmol/L (22-30); Creatinine 1 0.52 mg/dL (0.52-1.04); EST GLOMERULAR FILTRATION RATE > 60.0 ML/MIN; Glucose 89 mg/dL (74-106); Potassium 3.6 mmol/L (3.5-5.1); SODIUM 135 mmol/L (137-145)
[2021-07-16 08:47] LABS: Hep C Virus Ab <0.1 s/co ratio (0.0-0.9)
[2021-07-16 08:56] LABS: Absolute Neutrophil Ct (ANC) 5.96 (1.4-6.9); Basophil (Absolute #) 0.02 (0-0.4); Eosinophil % 0.3 % (0.00-5.0); Eosinophil (Absolute #) 0.03 (0-0.5); Hematocrit 37.6 % (35-47); Hemoglobin 11.9 gm/dl (12.0-16.0); Lymphocyte (Absolute #) 1.98 (1.0-4.6); Lymphocytes % 22.4 % (24.0-44.0); Mean Cell Volume 84.9 fl (78-100); Mean Corpuscular Hemoglobin 26.9 pg (26-32); Mean Corpuscular Hgb Concent. 31.6 g/dl (32-36); Mean Platelet Volume 10.9 fl (7.5-11.0); Monocyte (Absolute #) 0.84 (0.0-1.3); Monocytes % 9.5 % (0.0-12.0); Neutrophil % 67.6 % (36.0-66.0); Platelet Count 170 K/mm3 (150-450); Red Blood Count 4.43 M/mm3 (4.1-5.4); Red Cell Distribution Width 16.8 % (11.5-14.0); White Blood Count 8.8 K/mm3 (4.0-10.5)
[2021-07-16] MEDS: Cymbalta 30 MG Capsule PO SCH (10:00)
[2021-07-16] MEDS: Paxil 20 MG PO SCH (10:00)
[2021-07-16] MEDS: CLARITIN 10 MG PO SCH (10:00)
[2021-07-16] MEDS: Pepcid 20 MG PO SCH (10:01)
[2021-07-16] MEDS: Acidophilus TABLET PO SCH ×3 (10:01→22:39)
[2021-07-16] MEDS: Neurontin 100 MG PO SCH ×2 (10:11→22:39)
[2021-07-16] MEDS ORDERED: ROCEPHIN 1 Gm-D5w 50 ml Bag** 1 G/50 ML IVPB IV SCH (22:00)
[2021-07-17 01:57] LABS: 027 TOX PROD PRESUMPTIVE NEGATIVE (NEGATIVE); TOXIGENIC C. DIFF ORG NEGATIVE (NEGATIVE)
[2021-07-17 04:06] LABS: Appearance CLEAR (CLEAR); Bilirubin NEGATIVE (NEGATIVE); Blood NEGATIVE Ery/ul (0-5); Epithelial Cells RARE /HPF (FEW); Glucose NEGATIVE (NEGATIVE); Ketones SMALL (NEGATIVE); Leukocyte Esterase NEGATIVE (NEGATIVE); Mucus SLIGHT /HPF (NEGATIVE); Nitrite NEGATIVE (NEGATIVE); Protein,Urine Dip NEGATIVE (Negative); Specific Gravity 1.003 (1.005-1.025); Urobilinogen NEGATIVE mg/dL (0-1)
[2021-07-17 04:16] LABS: Bacteria NONE SEEN /HPF (NEGATIVE); RBC NONE SEEN /HPF (0-2)
[2021-07-17] MEDS: DILAUDID 1 MG/1ML PCA IV PRN ×2 (06:54→09:24)
[2021-07-17] MEDS: Cymbalta 30 MG Capsule PO SCH (09:08)
[2021-07-17] MEDS: PROTONIX 40 MG IV IV SCH (09:08)
[2021-07-17] MEDS: Neurontin 100 MG PO SCH (09:09)
[2021-07-17] MEDS: Acidophilus TABLET PO SCH ×2 (09:09→15:10)
[2021-07-17] MEDS: CLARITIN 10 MG PO SCH (09:09)
[2021-07-17] MEDS: Paxil 20 MG PO SCH (09:09)
[2021-07-17] MEDS: Pepcid 20 MG PO SCH (09:09)
[2021-07-17] MEDS ORDERED: PHENERGAN 25 MG PO PRN (09:17)
--- NOTE | 2021-07-17 09:17 | PCM.NOTE ---
Date and Time: 07/17/21 0915 Subjective Assessment: patient tolerated mashed potatoes last evening brought by family, no vomiting or diarrhea overnight, had a small bm and negative for c diff. still complains of pain, rarely using cooper helper Objective Exam General Appearance: no apparent distress, obese Neurologic Exam: alert, oriented x 3 Respiratory Exam: normal breath sounds, lungs clear, No respiratory distress Cardiovascular Exam: regular rate/rhythm, normal heart sounds Gastrointestinal/Abdomen Exam: soft, normal bowel sounds, tenderness (LLQ), No distention, No guarding, No rebound OBJECTIVE DATA Vital Signs: Vital Signs - 24 hr Temp Pulse Resp BP BP Pulse Ox 07/17/21 08:00 98.1 F 70 12 117/68 96 07/17/21 07:51 99 07/17/21 04:00 96.9 F 77 18 143/83 98 07/16/21 23:59 97.6 F 72 18 120/72 97 07/16/21 19:55 96.7 F 67 16 142/74 98 07/16/21 18:59 95 07/16/21 16:00 96.7 F 74 16 96 07/16/21 12:00 96.7 F 74 12 129/77 96 Pain Assessment - Last Documented Pain Intensity 0 Pain Scale Used 0-10 Pain Scale Intake and Output: Intake & Output 07/14/21 07/15/21 07/16/21 07/17/21 11:59 11:59 11:59 11:59 Intake Total 1270 3013 2207 Output Total 1200 950 Balance 1270 1813 1257 Weight 113.6 kg 114 kg Lab Results: Lab Results-Last 24 Hours 07/14/21 07/16/21 07/17/21 Range/Units 03:58 08:11 00:58 WBC 8.8 (4.0-10.5) K/mm3 RBC 4.43 (4.1-5.4) M/mm3 Hgb 11.9 L (12.0-16.0) gm/dl Hct 37.6 (35-47) % MCV 84.9 (78-100) fl MCH 26.9 (26-32) pg MCHC 31.6 L (32-36) g/dl RDW 16.8 H (11.5-14.0) % Plt Count 170 (150-450) K/mm3 MPV 10.9 (7.5-11.0) fl Gran % 67.6 H (36.0-66.0) % Eos # (Auto) 0.03 (0-0.5) Absolute Lymphs (auto) 1.98 (1.0-4.6) Absolute Monos (auto) 0.84 (0.0-1.3) Lymphocytes % 22.4 L (24.0-44.0) % Monocytes % 9.5 (0.0-12.0) % Eosinophils % 0.3 (0.00-5.0) % Basophils % 0.2 (0.0-0.4) % Absolute Granulocytes 5.96 (1.4-6.9) Basophils # 0.02 (0-0.4) Urine Color STRAW (YELLOW) Urine Appearance CLEAR (CLEAR) Urine pH 7.0 (5-6) Ur Specific [place] 1.003 (1.005-1.025) Urine Protein NEGATIVE (Negative) Urine Ketones SMALL (NEGATIVE) Urine Blood NEGATIVE (0-5) Venkata/ul Urine Nitrite NEGATIVE (NEGATIVE) Urine Bilirubin NEGATIVE (NEGATIVE) Urine Urobilinogen NEGATIVE (0-1) mg/dL Ur Leukocyte Esterase NEGATIVE (NEGATIVE) Urine WBC (Auto) NONE (0-5) /HPF Urine RBC (Auto) NONE SEEN (0-2) /HPF U Epithel Cells (Auto) RARE (FEW) /HPF Urine Bacteria (Auto) NONE SEEN (NEGATIVE) /HPF Urine Mucus (Auto) SLIGHT (NEGATIVE) /HPF Urine Culture Reflexed NO (NO) Urine Glucose NEGATIVE (NEGATIVE) mg/dL C. difficile Screen NEGATIVE (NEGATIVE) C.difficile 027-NAP1-B1 PRESUMPTIVE NEGATIVE (NEGATIVE) Multi-Disciplinary Progress Notes: Multi-Disciplinary Progress Notes 07/16/21 13:08 Case Management Note by Ayana Townsend NO D/C NEEDS ANTICIPATED AT THIS TIME. PT NOT PLAN TO D/C TODAY, WILL CONTINUE TO FOLLOW FOR ANY D/C NEEDS. Initialized on 07/16/21 13:08 - END OF NOTE Assessment/Plan (1) Abdominal pain Current Visit: Yes Status: Acute Qualifiers: Abdominal location: epigastric Qualified Code(s): R10.13 - Epigastric pain Assessment & Plan: improved, will advance diet. home on po meds for nausea and pain when tolerating diet and symptoms controlled. does not have a surgical abdomen exam Code(s): R10.9 - UNSPECIFIED ABDOMINAL PAIN (2) Gastroenteritis Current Visit: Yes Status: Acute Code(s): K52.9 - NONINFECTIVE GASTROENTERITIS AND COLITIS, UNSPECIFIED (3) Intractable nausea and vomiting Current Visit: Yes Status: Acute Code(s): R11.2 - NAUSEA WITH VOMITING, UNSPECIFIED
[2021-07-17] MEDS: ULTRAM 50 MG PO PRN ×2 (10:58→16:59)
[2021-07-17 16:35] VITALS: BP 131/74; PULSE 73; O2SAT 94
--- NOTE | 2021-07-17 18:30 | PCM.DS ---
Discharge Summary Date of Admission: 07/14/21 19:48 Admitting Physician: GLEN CERVANTES Primary Care Provider: YESSENIA SALTER Allergies Allergies No Known Drug Allergies Allergy (Verified 07/14/21 11:17) Hospital Summary - Hospital Course Hospital Course: patient admitted by Dr Patterson and seen by her until date of discharge, had intractable vomiting and abd pain. diagnosed with gastroenteritis, on date of discharge she is tolerating po intake and managed on po meds. insurance no longer covering her stay. - Vitals & Intake/Output Vital Signs: Vital Signs Temperature 98.3 F 07/17/21 16:00 Pulse Rate 73 07/17/21 16:00 Respiratory Rate 31 H 07/17/21 16:00 Blood Pressure 131/74 07/17/21 16:00 O2 Sat by Pulse Oximetry 94 L 07/17/21 16:00 Intake & Output: Intake & Output 07/15/21 07/16/21 07/17/21 07/18/21 11:59 11:59 11:59 11:59 Intake Total 1270 3013 2207 960 Output Total 1200 950 400 Balance 1270 1813 1257 560 Weight 114 kg - Lab Result Diagrams: 07/16/21 08:11 07/16/21 08:11 Lab Results-Last 24 Hrs: Lab Results-Last 24 Hours 07/14/21 07/17/21 Range/Units 03:58 00:58 Urine Color STRAW (YELLOW) Urine Appearance CLEAR (CLEAR) Urine pH 7.0 (5-6) Ur Specific [place] 1.003 (1.005-1.025) Urine Protein NEGATIVE (Negative) Urine Ketones SMALL (NEGATIVE) Urine Blood NEGATIVE (0-5) Venkata/ul Urine Nitrite NEGATIVE (NEGATIVE) Urine Bilirubin NEGATIVE (NEGATIVE) Urine Urobilinogen NEGATIVE (0-1) mg/dL Ur Leukocyte Esterase NEGATIVE (NEGATIVE) Urine WBC (Auto) NONE (0-5) /HPF Urine RBC (Auto) NONE SEEN (0-2) /HPF U Epithel Cells (Auto) RARE (FEW) /HPF Urine Bacteria (Auto) NONE SEEN (NEGATIVE) /HPF Urine Mucus (Auto) SLIGHT (NEGATIVE) /HPF Urine Culture Reflexed NO (NO) Urine Glucose NEGATIVE (NEGATIVE) mg/dL C. difficile Screen NEGATIVE (NEGATIVE) C.difficile [id number]-B1 PRESUMPTIVE NEGATIVE (NEGATIVE) Discharge Exam General Appearance: no apparent distress, alert, obese Respiratory Exam: normal breath sounds, lungs clear, No respiratory distress Cardiovascular Exam: regular rate/rhythm, normal heart sounds Gastrointestinal/Abdomen Exam: soft, normal bowel sounds, other (nondistended, no guarding or rebound. benign exam other than some lower abd/LLQ tenderness inconsistent during exam with distraction) Final Diagnosis/Problem List - Final Discharge Diagnosis/Problem (1) Abdominal pain Current Visit: Yes Status: Acute Code(s): R10.9 - UNSPECIFIED ABDOMINAL PAIN (2) Gastroenteritis Current Visit: Yes Status: Acute Code(s): K52.9 - NONINFECTIVE GASTROENTERITIS AND COLITIS, UNSPECIFIED (3) Intractable nausea and vomiting Current Visit: Yes Status: Acute Assessment & Plan: tolerating po intake with po phenergan Code(s): R11.2 - NAUSEA WITH VOMITING, UNSPECIFIED (4) Folliculitis Current Visit: Yes Status: Acute Assessment & Plan: home on po doxy per Dr Patterson's documented care plan Code(s): L73.9 - FOLLICULAR DISORDER, UNSPECIFIED - Discharge Disposition: Home, Self-Care Condition: Stable Prescriptions: New Promethazine HCl 25 mg [Phenergan 25 mg] 12.5 mg PO Q6H PRN PRN #20 tablet PRN Reason: Nausea Doxycycline Hyclate 100 mg [Vibramycin 100 MG] 100 mg PO BID #14 tab Continue Paroxetine HCl 20 mg [Paxil 20 MG] 10 mg PO DAILY Duloxetine HCl 30 mg [Cymbalta 30 MG Capsule] 60 mg PO DAILY Loratadine 10 mg [Claritin 10 mg] 10 mg PO DAILY Gabapentin 100 mg [Neurontin 100 MG] 100 mg PO BID Famotidine 20 mg [Pepcid 20 MG] 40 mg PO DAILY ondansetron HCL [Zofran] 4 mg SL Q6H PRN PRN #10 tablet PRN Reason: Nausea/Vomiting Etodolac 300 mg PO BID Instructions: Nausea and Vomiting, Adult (DC) Follow up with: YESSENIA SALTER [Primary Care Provider] - Forms: Discharge Instructions
== END 2021-07-17 18:52 | disposition home or self-care (01) ==
LOC: ED 11:06 → MED SURG 19:48
PROVIDERS: ADMIT Family Medicine; ATTEND Family Medicine
DX: R10.9 Unspecified abdominal pain (principal); K52.9 Noninfective gastroenteritis and colitis, unspecified; R11.2 Nausea with vomiting, unspecified; L73.9 Follicular disorder, unspecified; R10.13 Epigastric pain; K90.0 Celiac disease; K44.9 Diaphragmatic hernia without obstruction or gangrene; R32 Unspecified urinary incontinence; E66.01 Morbid (severe) obesity due to excess calories; D72.829 Elevated white blood cell count, unspecified; Z79.899 Other long term (current) drug therapy; Z20.5 Contact with and (suspected) exposure to viral hepatitis; Z20.828 Contact with and (suspected) exposure to other viral communicable diseases
CPT/HCPCS: 0241U; 36000; 36415; 74177; 80048; 80053; 80074; 81001; 83690; 84484; 84703; 85025; 87493; 93268; 94762; 96374; 96375; 96376; 99285; G0378; J0696; J1170; J2270; J2405; A9270-GY

== ENCOUNTER 2021-08-10 10:12 | Emergency (ER) | payer OTHER ==
[2021-08-10 10:28] VITALS: BP 108/89; PULSE 100; O2SAT 99
[2021-08-10 10:52] LABS: Absolute Neutrophil Ct (ANC) 7.78 (1.4-6.9); Basophil (Absolute #) 0.02 (0-0.4); Eosinophil % 0.1 % (0.00-5.0); Eosinophil (Absolute #) 0.01 (0-0.5); Hematocrit 45.2 % (35-47); Hemoglobin 14.2 gm/dl (12.0-16.0); Lymphocyte (Absolute #) 1.62 (1.0-4.6); Lymphocytes % 15.9 % (24.0-44.0); Mean Cell Volume 84.3 fl (78-100); Mean Corpuscular Hemoglobin 26.5 pg (26-32); Mean Corpuscular Hgb Concent. 31.4 g/dl (32-36); Mean Platelet Volume 10.7 fl (7.5-11.0); Monocyte (Absolute #) 0.73 (0.0-1.3); Monocytes % 7.2 % (0.0-12.0); Neutrophil % 76.6 % (36.0-66.0); Platelet Count 194 K/mm3 (150-450); Red Blood Count 5.36 M/mm3 (4.1-5.4); Red Cell Distribution Width 17.4 % (11.5-14.0); White Blood Count 10.2 K/mm3 (4.0-10.5)
[2021-08-10 11:03] LABS: ALBUMIN 4.2 g/dL (3.5-5.0); ALKALINE PHOSPHATASE 136 U/L (38-126); ANION GAP 14.5 MEQ/L (5-15); BLOOD UREA NITROGEN 4 mg/dL (7-17); CHLORIDE 108 mmol/L (98-107); Calcium 8.9 mg/dL (8.4-10.2); Carbon Dioxide 21 mmol/L (22-30); Creatinine 1 0.58 mg/dL (0.52-1.04); EST GLOMERULAR FILTRATION RATE > 60.0 ML/MIN; ETHYL ALCOHOL < 10 mg/dL (0-10); Glucose 103 mg/dL (74-106); Potassium 3.3 mmol/L (3.5-5.1); SGOT/AST 41 U/L (14-36); SGPT/ALT 22 U/L (0-35); SODIUM 140 mmol/L (137-145); Total Protein 7.5 g/dL (6.3-8.2)
--- NOTE | 2021-08-10 11:04 | ERPHSYRPT ---
- History of Present Illness Time Seen by Provider: 08/10/21 10:59 Patient Subjective Stated Complaint: Patient to ED for suicide attempt this morning. EMS states she stabbed herself with scissors. She states she had a ment al breakdown and wants to be left alone. States her head hurts and has hurt for years. When asked what happened to today she says she "doesnt know, it just all happened". Patient is hitting herself at this time. Triage Nursing Assessment: Patient is hitting self, and acting erratic at time of triage. Not cooperating. No wounds visualized at this time. States she wants to and does not want to live. Physician History: for suicide attempt this morning. EMS states she stabbed herself with scissors. She states she had a mental breakdown and wants to be left alone. States her head hurts and has hurt for years. When asked what happened to today she says she "does not know, it just all happened". Patient is hitting herself at this time. Patient is 35-year-old female with significant past medical history of bipolar disorder anxiety and morbid obesity was recently having a mental breakdown and started to stab herself with seizures. Patient also has a history of self- mutilation for long years. In ER patient is very agitated. Timing/Duration: today Severity of Symptoms-Max: moderate Severity of Symptoms-Current: moderate Context related to: spouse, significant other, living circumstances Suicidal thoughts: attempt Associated Symptoms: angry, agitated Previous symptoms: same symptoms as today Allergies/Adverse Reactions: No Known Drug Allergies Allergy (Verified 07/14/21 11:17) Home Medications: Duloxetine HCl 30 mg [Cymbalta 30 MG Capsule] 60 mg PO DAILY 06/07/21 [History] Famotidine 20 mg [Pepcid 20 MG] 40 mg PO DAILY 06/07/21 [History] Gabapentin 100 mg [Neurontin 100 MG] 100 mg PO BID 06/07/21 [History] Loratadine 10 mg [Claritin 10 mg] 10 mg PO DAILY 06/07/21 [History] Paroxetine HCl 20 mg [Paxil 20 MG] 10 mg PO DAILY 06/07/21 [History] Etodolac 300 mg PO BID 07/14/21 [History] Hx Tetanus, Diphtheria Vaccination/Date Given: Yes Hx Influenza Vaccination/Date Given: No Hx Pneumococcal Vaccination/Date Given: No Travel Risk - International Travel Have you traveled outside of the country in past 3 weeks: No - Coronavirus Screening Are you exhibiting any of the following symptoms?: No - Vaccine Status Have you recieved a Covid-19 vaccination: No - Past Medical History Pertinent Past Medical History: Yes Neurological History: No Pertinent History ENT History: No Pertinent History Cardiac History: No Pertinent History Respiratory History: No Pertinent History Endocrine Medical History: No Pertinent History Musculoskeletal History: No Pertinent History GI Medical History: Other History: No Pertinent History Psycho-Social History: Depression Female Reproductive Disorders: No Pertinent History Other Medical History: chronic back, celiac disease, 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 - Social History Smoking Status: Never smoker How long have you smoked: 4 years Exposure to second hand smoke: Yes Drug Use: none Patient Lives Alone: No Significant Family History: no pertinent family hx - Female History Hx Last Menstrual Period: 08/03/20 Hx Now: No - Review of Systems Constitutional: No Fever, No Chills Eyes: No Symptoms Ears, Nose, & Throat: No Symptoms Respiratory: No Cough, No Dyspnea Cardiac: No Chest Pain, No Edema, No Syncope Abdominal/Gastrointestinal: No Abdominal Pain, No Nausea, No Vomiting, No Diarrhea Genitourinary Symptoms: No Dysuria Musculoskeletal: No Back Pain, No Neck Pain Skin: No Rash Neurological: No Dizziness, No Focal Weakness, No Sensory Changes Psychological: Anxiety, Depression, Suicidal Ideations, Emotional Lability Endocrine: No Symptoms All Other Systems: Reviewed and Negative - Nursing Vital Signs Nursing Vital Signs: Initial Vital Signs Temperature 98 F 08/10/21 10:13 Pulse Rate 100 H 08/10/21 10:13 Respiratory Rate 20 08/10/21 10:13 Blood Pressure 108/89 08/10/21 10:13 O2 Sat by Pulse Oximetry 99 08/10/21 10:13 Pain Scale Pain Intensity 10 - Physical Exam General Appearance: no apparent distress Eyes, Ears, Nose, Throat Exam: normal ENT inspection, moist mucous membranes Neck Exam: normal inspection, non-tender, supple Respiratory Exam: normal breath sounds, lungs clear, No respiratory distress Cardiovascular Exam: regular rate/rhythm, No edema Gastrointestinal/Abdominal Exam: soft, No tenderness, No distention Extremities Exam: normal inspection, normal range of motion, No evidence of injury, No edema Current Suicidality: denies suicide plan Neurological Exam: alert, hse specialist II-XII nml as tested, oriented x 3 Appearance: disheveled Behavior/Eye Contact/Speech: increased rate of speech, belligerent Thoughts/Hallucinations: paranoid Skin Exam: normal color, warm, dry, No rash SpO2: 99 - Course Nursing assessment & vital signs reviewed: Yes - Radiology Exams Chest X-ray Interpretation: Reviewed by me, Negative Ordered Tests: Active Orders 24 hr Category Date Time Status Tele-Health Consult STAT Cons 08/10/21 11:57 Active CHEST 1 VIEW (PORTABLE) Stat Exams 08/10/21 10:41 Taken CBC W DIFF Stat Lab 08/10/21 10:45 Completed CMP Stat Lab 08/10/21 10:45 Completed COVID AG-BINAX NOW RAPID TEST Stat Lab 08/10/21 11:00 Completed ETHYL ALCOHOL Stat Lab 08/10/21 10:45 Completed HCG QUALITATIVE,SERUM Stat Lab 08/10/21 10:45 Completed UA W/RFX UR CULTURE Stat Lab 08/10/21 10:23 Ordered Urine Triage Profile Stat Lab 08/10/21 10:23 Ordered Medication Summary Discontinued Medications Generic Name Dose Route Start Last Admin Trade Name Eldon PRN Reason Stop Dose Admin Ondansetron HCl Confirm 08/10/21 11:39 Zofran 4 Mg/Udtablet Orally Disintegrating Administered 08/10/21 11:40 Dose 4 mg .ROUTE .STK-MED ONE Ondansetron HCl 4 mg 08/10/21 11:45 08/10/21 11:47 Zofran 4 Mg/Udtablet Orally Disintegrating PO 08/10/21 11:46 4 mg STAT ONE Administration Potassium Bicarbonate 25 meq 08/10/21 11:26 08/10/21 11:31 Potassium Bicarbonate 25 Meq Tab PO 08/10/21 11:27 25 meq STAT ONE Administration Potassium Bicarbonate Confirm 08/10/21 11:30 Potassium Bicarbonate 25 Meq Tab Administered 08/10/21 11:31 Dose 25 meq .ROUTE .STK-MED ONE Lab/Rad Data: Laboratory Result Diagrams 08/10/21 10:45 08/10/21 10:45 Laboratory Results 08/10/21 08/10/21 08/10/21 Range/Units 11:00 10:45 10:45 WBC (4.0-10.5) K/mm3 RBC (4.1-5.4) M/mm3 Hgb (12.0-16.0) gm/dl Hct (35-47) % MCV (78-100) fl MCH (26-32) pg MCHC (32-36) g/dl RDW (11.5-14.0) % Plt Count (150-450) K/mm3 MPV (7.5-11.0) fl Gran % (36.0-66.0) % Eos # (Auto) (0-0.5) Absolute Lymphs (auto) (1.0-4.6) Absolute Monos (auto) (0.0-1.3) Lymphocytes % (24.0-44.0) % Monocytes % (0.0-12.0) % Eosinophils % (0.00-5.0) % Basophils % (0.0-0.4) % Absolute Granulocytes (1.4-6.9) Basophils # (0-0.4) Sodium 140 (137-145) mmol/L Potassium 3.3 L (3.5-5.1) mmol/L Chloride 108 H (98-107) mmol/L Carbon Dioxide 21 L (22-30) mmol/L Anion Gap 14.5 (5-15) MEQ/L BUN 4 L (7-17) mg/dL Creatinine 0.58 (0.52-1.04) mg/dL Estimated GFR > 60.0 ML/MIN Glucose 103 (74-106) mg/dL Calcium 8.9 (8.4-10.2) mg/dL Total Bilirubin 0.70 (0.2-1.3) mg/dL AST 41 H (14-36) U/L ALT 22 (0-35) U/L Alkaline Phosphatase 136 H (38-126) U/L Serum Total Protein 7.5 (6.3-8.2) g/dL Albumin 4.2 (3.5-5.0) g/dL Serum , Qual NEGATIVE (Negative) Ethyl Alcohol < 10 (0-10) mg/dL SARS-CoV-2 Ag (Rapid) NEGATIVE (NEGATIVE) 08/10/21 Range/Units 10:45 WBC 10.2 (4.0-10.5) K/mm3 RBC 5.36 (4.1-5.4) M/mm3 Hgb 14.2 (12.0-16.0) gm/dl Hct 45.2 (35-47) % MCV 84.3 (78-100) fl MCH 26.5 (26-32) pg MCHC 31.4 L (32-36) g/dl RDW 17.4 H (11.5-14.0) % Plt Count 194 (150-450) K/mm3 MPV 10.7 (7.5-11.0) fl Gran % 76.6 H (36.0-66.0) % Eos # (Auto) 0.01 (0-0.5) Absolute Lymphs (auto) 1.62 (1.0-4.6) Absolute Monos (auto) 0.73 (0.0-1.3) Lymphocytes % 15.9 L (24.0-44.0) % Monocytes % 7.2 (0.0-12.0) % Eosinophils % 0.1 (0.00-5.0) % Basophils % 0.2 (0.0-0.4) % Absolute Granulocytes 7.78 H (1.4-6.9) Basophils # 0.02 (0-0.4) Sodium (137-145) mmol/L Potassium (3.5-5.1) mmol/L Chloride (98-107) mmol/L Carbon Dioxide (22-30) mmol/L Anion Gap (5-15) MEQ/L BUN (7-17) mg/dL Creatinine (0.52-1.04) mg/dL Estimated GFR ML/MIN Glucose (74-106) mg/dL Calcium (8.4-10.2) mg/dL Total Bilirubin (0.2-1.3) mg/dL AST (14-36) U/L ALT (0-35) U/L Alkaline Phosphatase (38-126) U/L Serum Total Protein (6.3-8.2) g/dL Albumin (3.5-5.0) g/dL Serum , Qual (Negative) Ethyl Alcohol (0-10) mg/dL SARS-CoV-2 Ag (Rapid) (NEGATIVE) - Progress Progress: unchanged Counseled pt/family regarding: diagnosis, need for follow-up - Departure Departure Disposition: Transfer Clinical Impression: Suicidal behavior with attempted self-injury Condition: Stable Critical Care Time: No Referrals: YESSENIA SALTER [Primary Care Provider] - Follow up/PCP as directed Instructions: Bipolar Disorder (DC) Additional Instructions: REJIISIAH MILTON was seen on 08/10/21 n the Emergency Room. At that time you were treated for an emergent condition, during your visit Laboratory, Radiology and/or other procedures may have been ordered. It is very important that you follow-up with your Primary Care Physician YESSENIA SALTER within the next 24-48 hours to review your Emergency Room visit and the final results of testing that was ordered. Some test results such as Urine Cultures, Blood Cultures, and other cultures if ordered will not be finalized for 24-48 hours. If you do not have a Primary Care Provider please call the medical records department at [phone] to obtain a copy of your results or you may sign into our patient portal to obtain these results by visiting us @ [email or web address] and completing the following steps: 1. Click on the Patient Portal link 2. Click the Patient Self Enrollment Link to complete the enrollment form and entering your 3. Once the enrollment form is completed you will receive an email with a temp orary ID and password at the email address you provided. 4. Next choose a user name and password. Your user name must be at least 4 characters long and your password must be at least 4 characters long. 5. Choose a security question from the list and provide your answer to the question. If you already have signed into the Health Portal you may access your Health Care Information 11/01 by the following steps: 1. Login to our website @ [email or web address] 2. Enter your original user name and password. FAQS [facility] Health Portal is an online tool that contains your Lab Results, Radiology Reports, Visit History, Discharge Instructions and Health Summary Lab and Radiology Results will not be available for 72 hours on the portal. The Portal is a secure site, passwords are encryted and URLs are re-written so they cannot be copied and pasted. You and authorized family members are the only ones who can access your Portal. Also there is a timeout feature that protects your information if you leave the Portal page open. If you have technical difficulty please use the Contact Us link on the page this will allow you to submit any questions you have regarding the Portal or you may contact the Medical Record Department at [phone].
[2021-08-10 11:19] LABS: COVID AG -BINAX NOW RAPID TEST NEGATIVE (NEGATIVE)
[2021-08-10] MEDS ORDERED: K-LYTE 25 MEQ PO ONE (11:26)
[2021-08-10] MEDS ORDERED: K-LYTE 25 MEQ ONE (11:30)
[2021-08-10] MEDS ORDERED: ZOFRAN ODT 4 MG ONE (11:39)
[2021-08-10] MEDS ORDERED: ZOFRAN ODT 4 MG PO ONE (11:45)
[2021-08-10] MEDS ORDERED: Ativan 2 MG/1 ML VIAL ONE (12:38)
[2021-08-10] MEDS ORDERED: Ativan 2 MG/1 ML VIAL IM ONE (12:44)
--- NOTE | 2021-08-10 19:00 | XRAY ---
Indication: Agitation. Comparison: None Portable chest slightly underinflated and clear. Heart and mediastinal structures within normal limits. Bony thorax intact with incidental 7 mm left humeral head bone island. Impression: Nonacute chest.
== END 2021-08-10 15:49 ==
LOC: ED 10:12
DX: T14.91XA Suicide attempt, initial encounter (principal); X78.8XXA Intentional self-harm by other sharp object, initial encounter; Z63.0 Problems in relationship with spouse or partner; Z59.9 Problem related to housing and economic circumstances, unspecified; F41.9 Anxiety disorder, unspecified; F31.9 Bipolar disorder, unspecified; E66.01 Morbid (severe) obesity due to excess calories
CPT/HCPCS: 36415; 71045; 80053; 81025; 85025; 96372; 99000; 99285; G0480; 80307; J2060; Q0162; A9270-GY

== ENCOUNTER 2021-08-25 00:22 | Emergency (ER) | payer OTHER ==
--- NOTE | 2021-08-25 00:41 | ERPHSYRPT ---
- History of Present Illness Time Seen by Provider: 08/25/21 00:36 Source: patient Exam Limitations: no limitations Physician History: pt has been treated for depression with recent med change and not doing well now with suicidal ideation. Did not actually carry this out. Has noted some chest pain also. No known cardiac disease. risk factors of elevated rajesh and BMI. , Family Hx and smoker . nonspec EKG, cardiac score / heart score of 3-4 . Chronic back pain Tx by pain management. Abd pain chronic being worked up by scoping Bx thought to be celiac Dx or other next week. 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) Suicidal thoughts: specific plan Associated Symptoms: depressed Previous symptoms: same symptoms as today, recent hospitalization, recently treated Allergies/Adverse Reactions: No Known Drug Allergies Allergy (Verified 07/14/21 11:17) Home Medications: Famotidine 20 mg [Pepcid 20 MG] 40 mg PO DAILY 06/07/21 [History] Loratadine 10 mg [Claritin 10 mg] 10 mg PO DAILY 06/07/21 [History] Etodolac 300 mg PO BID 07/14/21 [History] Aripiprazole 10 mg [Abilify 10 MG] 10 mg PO 08/25/21 [History] Tramadol HCl [Tramadol HCl ER] 200 mg PO 08/25/21 [History] Hx Tetanus, Diphtheria Vaccination/Date Given: Yes Hx Influenza Vaccination/Date Given: No Hx Pneumococcal Vaccination/Date Given: No Travel Risk - Vaccine Status Have you recieved a Covid-19 vaccination: No - Past Medical History Pertinent Past Medical History: Yes Neurological History: No Pertinent History ENT History: No Pertinent History Cardiac History: No Pertinent History Respiratory History: No Pertinent History Endocrine Medical History: No Pertinent History Musculoskeletal History: No Pertinent History GI Medical History: Other History: No Pertinent History Psycho-Social History: Depression Female Reproductive Disorders: No Pertinent History Other Medical History: chronic back, celiac disease, 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 - Social History Smoking Status: Never smoker How long have you smoked: 4 years Exposure to second hand smoke: Yes Drug Use: none Patient Lives Alone: No Significant Family History: no pertinent family hx - Review of Systems Constitutional: No Fever, No Chills Eyes: No Symptoms Ears, Nose, & Throat: No Symptoms Respiratory: No Cough, No Dyspnea Cardiac: Chest Pain, No Edema, No Syncope Abdominal/Gastrointestinal: Abdominal Pain, Other (chronic abd pain without change), No Nausea, No Vomiting, No Diarrhea Genitourinary Symptoms: No Dysuria Musculoskeletal: Back Pain (chronic without change), No Neck Pain Skin: No Rash Neurological: No Dizziness, No Focal Weakness, No Sensory Changes Psychological: No Symptoms Endocrine: No Symptoms All Other Systems: Reviewed and Negative - Nursing Vital Signs Nursing Vital Signs: Initial Vital Signs Temperature 98.2 F 08/25/21 00:38 Pulse Rate 129 H 08/25/21 00:38 Respiratory Rate 18 08/25/21 00:38 Blood Pressure 151/117 08/25/21 00:38 O2 Sat by Pulse Oximetry 97 08/25/21 00:38 Pain Scale Pain Intensity 4 - Physical Exam General Appearance: no apparent distress Eyes, Ears, Nose, Throat Exam: normal ENT inspection, moist mucous membranes Neck Exam: normal inspection, non-tender, supple Respiratory Exam: normal breath sounds, lungs clear, No respiratory distress Cardiovascular Exam: regular rate/rhythm, No edema Gastrointestinal/Abdominal Exam: soft, No tenderness, No distention Extremities Exam: normal inspection, normal range of motion, No evidence of injury, No edema Peripheral Pulses: carotid (R): 2+, carotid (L): 2+, femoral (R): 2+, femoral (L): 2+, dorsalis-pedis (R): 2+, dorsalis-pedis (L): 2+ Current Suicidality: has suicide plan Neurological Exam: alert, b2b sales representative II-XII nml as tested, oriented x 3, depressed affect Appearance: appropriate appearance, appropriate insight, no memory impairment Behavior/Eye Contact/Speech: alert & cooperative, good eye contact, normal speech Thoughts/Hallucinations: normal thought pattern, no apparent hallucination Skin Exam: normal color, warm, dry, No rash SpO2 Interpretation: normal SpO2: 97 O2 Delivery: Room Air - Course Nursing assessment & vital signs reviewed: Yes EKG Interpreted by Me: Sinus Tach, NORMAL AXIS, Non-specific ST Changes, Other (low voltage precordial leads) - Radiology Exams Chest X-ray Interpretation: Reviewed by me, Other (calcified granulomas, ) Ordered Tests: Active Orders 24 hr Category Date Time Status Construction Safety Manager STAT Care 08/25/21 00:50 Active Clean Catch Urine Specimen STAT Care 08/25/21 00:51 Active EKG-ER Only STAT Care 08/25/21 00:49 Active IV Insertion STAT Care 08/25/21 00:49 Active Pulse Oximetry (ED) STAT Care 08/25/21 00:49 Active Psychiatric Consult STAT Cons 08/25/21 00:44 Active CHEST 1 VIEW (PORTABLE) Stat Exams 08/25/21 00:50 Taken ACETAMINOPHEN Stat Lab 08/25/21 01:15 Completed AMYLASE Stat Lab 08/25/21 01:15 Completed CBC W DIFF Stat Lab 08/25/21 01:15 Completed CK-Creatinine Phosphokinase Stat Lab 08/25/21 01:15 Completed CMP Stat Lab 08/25/21 01:15 Completed COVID AG-BINAX NOW RAPID TEST Stat Lab 08/25/21 01:16 Completed D-DIMER QUANTITATIVE Stat Lab 08/25/21 01:15 Completed ETHYL ALCOHOL Stat Lab 08/25/21 01:15 Completed HCG QUALITATIVE,SERUM Stat Lab 08/25/21 01:15 Completed LIPASE Stat Lab 08/25/21 01:15 Completed Lactic Acid Stat Lab 08/25/21 01:10 Completed NT PRO BNP Routine Lab 08/25/21 01:15 Completed SALICYLATE Stat Lab 08/25/21 01:15 Completed TROPONIN Q3H Lab 08/25/21 01:15 Completed TROPONIN Q3H Lab 08/25/21 04:00 Ordered TROPONIN Q3H Lab 08/25/21 07:00 Ordered TROPONIN Q3H Lab 08/25/21 10:00 Ordered TROPONIN Q3H Lab 08/25/21 13:00 Ordered UA W/RFX UR CULTURE Stat Lab 08/25/21 01:26 Completed Urine Triage Profile Stat Lab 08/25/21 01:26 Completed Medication Summary Discontinued Medications Generic Name Dose Route Start Last Admin Trade Name Freq PRN Reason Stop Dose Admin Aspirin 324 mg 08/25/21 02:20 08/25/21 02:28 Aspirin 81 Mg Tab.Chew PO 08/25/21 02:21 324 mg STAT ONE Administration Aspirin Confirm 08/25/21 02:26 Aspirin 81 Mg Tab.Chew Administered 08/25/21 02:27 Dose 324 mg .ROUTE .STK-MED ONE Sodium Chloride 1,000 mls @ 999 mls/hr 08/25/21 00:49 08/25/21 02:31 Sodium Chloride 0.9% 1000 Ml IV 08/25/21 01:49 Infused .Q1H1M STA Infusion Sodium Chloride Confirm 08/25/21 01:18 Sodium Chloride 0.9% 1000 Ml Administered 08/25/21 01:19 Dose 1,000 mls @ ud .ROUTE .STK-MED ONE Lorazepam 1 mg 08/25/21 01:13 08/25/21 01:19 Lorazepam 1 Mg Tablet PO 08/25/21 01:14 1 mg STAT ONE Administration Lorazepam Confirm 08/25/21 01:18 Lorazepam 1 Mg Tablet Administered 08/25/21 01:19 Dose 1 mg .ROUTE .STK-MED ONE Nitroglycerin 0.4 mg 08/25/21 02:22 08/25/21 02:29 Nitroglycerin 0.4 Mg Tablet Bottle SL 08/25/21 02:23 Not Given STAT ONE Nitroglycerin 1 gm 08/25/21 02:24 08/25/21 02:27 Nitroglycerin 1 Gm Packet TOP 08/25/21 02:25 1 gm STAT ONE Administration Nitroglycerin Confirm 08/25/21 02:26 Nitroglycerin 1 Gm Packet Administered 08/25/21 02:27 Dose 1 gm .ROUTE .STK-MED ONE Lab/Rad Data: Laboratory Result Diagrams 08/25/21 01:15 08/25/21 01:15 Laboratory Results 08/25/21 08/25/21 08/25/21 Range/Units 01:26 01:26 01:16 WBC (4.0-10.5) K/mm3 RBC (4.1-5.4) M/mm3 Hgb (12.0-16.0) gm/dl Hct (35-47) % MCV (78-100) fl MCH (26-32) pg MCHC (32-36) g/dl RDW (11.5-14.0) % Plt Count (150-450) K/mm3 MPV (7.5-11.0) fl Gran % (36.0-66.0) % Eos # (Auto) (0-0.5) Absolute Lymphs (auto) (1.0-4.6) Absolute Monos (auto) (0.0-1.3) Lymphocytes % (24.0-44.0) % Monocytes % (0.0-12.0) % Eosinophils % (0.00-5.0) % Basophils % (0.0-0.4) % Absolute Granulocytes (1.4-6.9) Basophils # (0-0.4) D-Dimer (215-500) ng/mL Sodium (137-145) mmol/L Potassium (3.5-5.1) mmol/L Chloride (98-107) mmol/L Carbon Dioxide (22-30) mmol/L Anion Gap (5-15) MEQ/L BUN (7-17) mg/dL Creatinine (0.52-1.04) mg/dL Estimated GFR ML/MIN Glucose (74-106) mg/dL Lactic Acid (0.4-2.0) Calcium (8.4-10.2) mg/dL Total Bilirubin (0.2-1.3) mg/dL AST (14-36) U/L ALT (0-35) U/L Alkaline Phosphatase (38-126) U/L Creatine Kinase (30-135) U/L Troponin I (0.000-0.034) ng/mL NT-Pro-B Natriuret Pep (0-450) pg/mL Serum Total Protein (6.3-8.2) g/dL Albumin (3.5-5.0) g/dL Amylase (30-110) U/L Lipase (23-300) U/L Serum , Qual (Negative) Urine Color YELLOW (YELLOW) Urine Appearance SLIGHTLY CLOUDY (CLEAR) Urine pH 6.0 (5-6) Ur Specific [place] 1.009 (1.005-1.025) Urine Protein NEGATIVE (Negative) Urine Ketones NEGATIVE (NEGATIVE) Urine Blood NEGATIVE (0-5) Venkata/ul Urine Nitrite NEGATIVE (NEGATIVE) Urine Bilirubin NEGATIVE (NEGATIVE) Urine Urobilinogen NEGATIVE (0-1) mg/dL Ur Leukocyte Esterase TRACE (NEGATIVE) Urine WBC (Auto) 6-10 (0-5) /HPF Urine RBC (Auto) NONE (0-2) /HPF U Hyaline Cast (Auto) 3-5 (0-2) /LPF U Epithel Cells (Auto) FEW (FEW) /HPF Urine Bacteria (Auto) NONE (NEGATIVE) /HPF Urine Mucus (Auto) SLIGHT (NEGATIVE) /HPF Urine Culture Reflexed NO (NO) Urine Glucose NEGATIVE (NEGATIVE) mg/dL Salicylates (2-20) mg/dL Urine Opiates Level NEGATIVE (NEGATIVE) Ur Methadone NEGATIVE (NEGATIVE) Acetaminophen (10-30) ug/ml Urine Barbiturates NEGATIVE (NEGATIVE) Ur Phencyclidine (PCP) NEGATIVE (NEGATIVE) Urine Amphetamine NEGATIVE (NEGATIVE) U Benzodiazepine Level NEGATIVE (NEGATIVE) Urine Cocaine NEGATIVE (NEGATIVE) Urine Marijuana (THC) NEGATIVE (NEGATIVE) Ethyl Alcohol (0-10) mg/dL SARS-CoV-2 Ag (Rapid) NEGATIVE (NEGATIVE) 08/25/21 08/25/21 08/25/21 Range/Units 01:15 01:15 01:15 WBC (4.0-10.5) K/mm3 RBC (4.1-5.4) M/mm3 Hgb (12.0-16.0) gm/dl Hct (35-47) % MCV (78-100) fl MCH (26-32) pg MCHC (32-36) g/dl RDW (11.5-14.0) % Plt Count (150-450) K/mm3 MPV (7.5-11.0) fl Gran % (36.0-66.0) % Eos # (Auto) (0-0.5) Absolute Lymphs (auto) (1.0-4.6) Absolute Monos (auto) (0.0-1.3) Lymphocytes % (24.0-44.0) % Monocytes % (0.0-12.0) % Eosinophils % (0.00-5.0) % Basophils % (0.0-0.4) % Absolute Granulocytes (1.4-6.9) Basophils # (0-0.4) D-Dimer 295 (215-500) ng/mL Sodium (137-145) mmol/L Potassium (3.5-5.1) mmol/L Chloride (98-107) mmol/L Carbon Dioxide (22-30) mmol/L Anion Gap (5-15) MEQ/L BUN (7-17) mg/dL Creatinine (0.52-1.04) mg/dL Estimated GFR ML/MIN Glucose (74-106) mg/dL Lactic Acid (0.4-2.0) Calcium (8.4-10.2) mg/dL Total Bilirubin (0.2-1.3) mg/dL AST (14-36) U/L ALT (0-35) U/L Alkaline Phosphatase (38-126) U/L Creatine Kinase (30-135) U/L Troponin I < 0.012 (0.000-0.034) ng/mL NT-Pro-B Natriuret Pep 35.6 (0-450) pg/mL Serum Total Protein (6.3-8.2) g/dL Albumin (3.5-5.0) g/dL Amylase (30-110) U/L Lipase (23-300) U/L Serum , Qual NEGATIVE (Negative) Urine Color (YELLOW) Urine Appearance (CLEAR) Urine pH (5-6) Ur Specific [place] (1.005-1.025) Urine Protein (Negative) Urine Ketones (NEGATIVE) Urine Blood (0-5) Venkata/ul Urine Nitrite (NEGATIVE) Urine Bilirubin (NEGATIVE) Urine Urobilinogen (0-1) mg/dL Ur Leukocyte Esterase (NEGATIVE) Urine WBC (Auto) (0-5) /HPF Urine RBC (Auto) (0-2) /HPF U Hyaline Cast (Auto) (0-2) /LPF U Epithel Cells (Auto) (FEW) /HPF Urine Bacteria (Auto) (NEGATIVE) /HPF Urine Mucus (Auto) (NEGATIVE) /HPF Urine Culture Reflexed (NO) Urine Glucose (NEGATIVE) mg/dL Salicylates (2-20) mg/dL Urine Opiates Level (NEGATIVE) Ur Methadone (NEGATIVE) Acetaminophen (10-30) ug/ml Urine Barbiturates (NEGATIVE) Ur Phencyclidine (PCP) (NEGATIVE) Urine Amphetamine (NEGATIVE) U Benzodiazepine Level (NEGATIVE) Urine Cocaine (NEGATIVE) Urine Marijuana (THC) (NEGATIVE) Ethyl Alcohol (0-10) mg/dL SARS-CoV-2 Ag (Rapid) (NEGATIVE) 08/25/21 08/25/21 08/25/21 Range/Units 01:15 01:15 01:10 WBC 8.9 (4.0-10.5) K/mm3 RBC 4.76 (4.1-5.4) M/mm3 Hgb 12.8 (12.0-16.0) gm/dl Hct 39.7 (35-47) % MCV 83.4 (78-100) fl MCH 26.9 (26-32) pg MCHC 32.2 (32-36) g/dl RDW 17.0 H (11.5-14.0) % Plt Count 228 (150-450) K/mm3 MPV 11.2 H (7.5-11.0) fl Gran % 57.3 (36.0-66.0) % Eos # (Auto) 0.22 (0-0.5) Absolute Lymphs (auto) 2.58 (1.0-4.6) Absolute Monos (auto) 0.96 (0.0-1.3) Lymphocytes % 29.1 (24.0-44.0) % Monocytes % 10.8 (0.0-12.0) % Eosinophils % 2.5 (0.00-5.0) % Basophils % 0.3 (0.0-0.4) % Absolute Granulocytes 5.08 (1.4-6.9) Basophils # 0.03 (0-0.4) D-Dimer (215-500) ng/mL Sodium 139 (137-145) mmol/L Potassium 3.7 (3.5-5.1) mmol/L Chloride 109 H (98-107) mmol/L Carbon Dioxide 23 (22-30) mmol/L Anion Gap 10.6 (5-15) MEQ/L BUN 3 L (7-17) mg/dL Creatinine 0.46 L (0.52-1.04) mg/dL Estimated GFR > 60.0 ML/MIN Glucose 102 (74-106) mg/dL Lactic Acid 1.1 (0.4-2.0) Calcium 9.1 (8.4-10.2) mg/dL Total Bilirubin 0.60 (0.2-1.3) mg/dL AST 29 (14-36) U/L ALT 22 (0-35) U/L Alkaline Phosphatase 148 H (38-126) U/L Creatine Kinase 68 (30-135) U/L Troponin I (0.000-0.034) ng/mL NT-Pro-B Natriuret Pep (0-450) pg/mL Serum Total Protein 6.8 (6.3-8.2) g/dL Albumin 3.9 (3.5-5.0) g/dL Amylase 42 (30-110) U/L Lipase 98 (23-300) U/L Serum , Qual (Negative) Urine Color (YELLOW) Urine Appearance (CLEAR) Urine pH (5-6) Ur Specific [place] (1.005-1.025) Urine Protein (Negative) Urine Ketones (NEGATIVE) Urine Blood (0-5) Venkata/ul Urine Nitrite (NEGATIVE) Urine Bilirubin (NEGATIVE) Urine Urobilinogen (0-1) mg/dL Ur Leukocyte Esterase (NEGATIVE) Urine WBC (Auto) (0-5) /HPF Urine RBC (Auto) (0-2) /HPF U Hyaline Cast (Auto) (0-2) /LPF U Epithel Cells (Auto) (FEW) /HPF Urine Bacteria (Auto) (NEGATIVE) /HPF Urine Mucus (Auto) (NEGATIVE) /HPF Urine Culture Reflexed (NO) Urine Glucose (NEGATIVE) mg/dL Salicylates < 1.0 L (2-20) mg/dL Urine Opiates Level (NEGATIVE) Ur Methadone (NEGATIVE) Acetaminophen < 10 L (10-30) ug/ml Urine Barbiturates (NEGATIVE) Ur Phencyclidine (PCP) (NEGATIVE) Urine Amphetamine (NEGATIVE) U Benzodiazepine Level (NEGATIVE) Urine Cocaine (NEGATIVE) Urine Marijuana (THC) (NEGATIVE) Ethyl Alcohol < 10 (0-10) mg/dL SARS-CoV-2 Ag (Rapid) (NEGATIVE) - Progress Progress: improved, re-examined Progress Note: 08/25/21 02:55 no effect from Nitro. 08/25/21 04:11 the telemental is completed and they have determined no actual suicidal intent and have formulated a safety plan with the patient. CP is resolving . discussed results with pt including that although the enzymes are negative, there can still be cardiac problems evolving and that additional workup is required to rule out Dx. She understands but wishes to follow up to accomplish this outpt rather than further workup in ER or admission at this time. she has the capacity to make this choice. Counseled pt/family regarding: lab results, diagnosis, need for follow-up, rad results - Departure Clinical Impression: Depression with anxiety, Transient chest pain unknown cause, possible early UTI, Hiatal hernia Condition: Good Critical Care Time: No Referrals: YESSENIA SALTER [Primary Care Provider] - Follow up/PCP as directed Instructions: Urinary Tract Infection, Adult (DC), Chest Pain (DC), Depression, Adult (DC), Anxiety, Adult (DC) Additional Instructions: Follow-up with your mental health team to adjust your medicines. THere may be an early urinary infection and we have ordered antibiotics and you should recheck urine with your Dr. afterwards. Also schedule further cardiac evaluation with your Dr. since even with negative tests as performed there can still be a developing cardiac condition and it requires more to determine this. Return meantime if further symptoms. Prescriptions: Cephalexin Mh 500 mg [Keflex 500 mg] 500 mg PO TID 7 Days #21 cap
[2021-08-25] MEDS ORDERED: Sodium Chloride 0.9% 1000 ML 1,000 ML IV STA (00:49)
[2021-08-25] MEDS ORDERED: Ativan 1 MG PO ONE (01:13)
[2021-08-25 01:18] LABS: Absolute Neutrophil Ct (ANC) 5.08 (1.4-6.9); Basophil (Absolute #) 0.03 (0-0.4); Eosinophil % 2.5 % (0.00-5.0); Eosinophil (Absolute #) 0.22 (0-0.5); Hematocrit 39.7 % (35-47); Hemoglobin 12.8 gm/dl (12.0-16.0); Lymphocyte (Absolute #) 2.58 (1.0-4.6); Lymphocytes % 29.1 % (24.0-44.0); Mean Cell Volume 83.4 fl (78-100); Mean Corpuscular Hemoglobin 26.9 pg (26-32); Mean Corpuscular Hgb Concent. 32.2 g/dl (32-36); Mean Platelet Volume 11.2 fl (7.5-11.0); Monocyte (Absolute #) 0.96 (0.0-1.3); Monocytes % 10.8 % (0.0-12.0); Neutrophil % 57.3 % (36.0-66.0); Platelet Count 228 K/mm3 (150-450); Red Blood Count 4.76 M/mm3 (4.1-5.4); White Blood Count 8.9 K/mm3 (4.0-10.5)
[2021-08-25] MEDS ORDERED: Sodium Chloride 0.9% 1000 ML 1,000 ML ONE (01:18)
[2021-08-25] MEDS ORDERED: Ativan 1 MG ONE (01:18)
[2021-08-25 01:38] LABS: COVID AG -BINAX NOW RAPID TEST NEGATIVE (NEGATIVE)
[2021-08-25 01:39] LABS: Appearance SLIGHTLY CLOUDY (CLEAR); Bilirubin NEGATIVE (NEGATIVE); Blood NEGATIVE Ery/ul (0-5); Epithelial Cells FEW /HPF (FEW); Glucose NEGATIVE (NEGATIVE); Ketones NEGATIVE (NEGATIVE); Leukocyte Esterase TRACE (NEGATIVE); Mucus SLIGHT /HPF (NEGATIVE); Nitrite NEGATIVE (NEGATIVE); Protein,Urine Dip NEGATIVE (Negative); Specific Gravity 1.009 (1.005-1.025); Urobilinogen NEGATIVE mg/dL (0-1)
[2021-08-25 01:40] LABS: ACETAMINOPHEN < 10 ug/ml (10-30); ALBUMIN 3.9 g/dL (3.5-5.0); ALKALINE PHOSPHATASE 148 U/L (38-126); AMYLASE 42 U/L (30-110); ANION GAP 10.6 MEQ/L (5-15); BLOOD UREA NITROGEN 3 mg/dL (7-17); CHLORIDE 109 mmol/L (98-107); CK-Creatinine Phosphokinase 68 U/L (30-135); Calcium 9.1 mg/dL (8.4-10.2); Carbon Dioxide 23 mmol/L (22-30); Creatinine 1 0.46 mg/dL (0.52-1.04); EST GLOMERULAR FILTRATION RATE > 60.0 ML/MIN; ETHYL ALCOHOL < 10 mg/dL (0-10); Glucose 102 mg/dL (74-106); LIPASE 98 U/L (23-300); Potassium 3.7 mmol/L (3.5-5.1); SALICYLATE < 1.0 mg/dL (2-20); SGOT/AST 29 U/L (14-36); SGPT/ALT 22 U/L (0-35); SODIUM 139 mmol/L (137-145); Total Protein 6.8 g/dL (6.3-8.2)
[2021-08-25 01:45] LABS: Amphetamine,Urine NEGATIVE (NEGATIVE); Barbiturate,Urine NEGATIVE (NEGATIVE); Benzodiazepine,Urine NEGATIVE (NEGATIVE); Cocaine,Urine NEGATIVE (NEGATIVE); Methadone,Urine NEGATIVE (NEGATIVE); Opiate,Urine NEGATIVE (NEGATIVE); PCP,Urine NEGATIVE (NEGATIVE); THC,Urine NEGATIVE (NEGATIVE)
[2021-08-25 01:57] LABS: NT PRO BNP 35.6 pg/mL (0-450); TROPONIN < 0.012 ng/mL (0.000-0.034)
[2021-08-25] MEDS ORDERED: BABY ASPIRIN 81 MG CHEW PO ONE (02:20)
[2021-08-25] MEDS ORDERED: Nitrostat 0.4 MG Tablet SL ONE (02:22)
[2021-08-25] MEDS ORDERED: NITRO-BID 2% UD PACKETS TOP ONE (02:24)
[2021-08-25] MEDS ORDERED: BABY ASPIRIN 81 MG CHEW ONE (02:26)
[2021-08-25] MEDS ORDERED: NITRO-BID 2% UD PACKETS ONE (02:26)
[2021-08-25 05:11] VITALS: BP 107/56; PULSE 91; O2SAT 100
--- NOTE | 2021-08-25 09:10 | XRAY ---
Indication: Chest pain. Comparison: August 10, 2021. Portable chest again demonstrates normal heart and lungs. Bony thorax intact again with incidental left humeral head bone island. No new/acute findings.
== END 2021-08-25 05:55 | disposition home or self-care (01) ==
LOC: ED 00:22
DX: F32.A Depression, unspecified (principal); F41.9 Anxiety disorder, unspecified; R07.9 Chest pain, unspecified; K44.9 Diaphragmatic hernia without obstruction or gangrene; Z72.0 Tobacco use; R45.851 Suicidal ideations; Z79.891 Long term (current) use of opiate analgesic; Z79.899 Other long term (current) drug therapy
CPT/HCPCS: 36000; 36415; 71045; 80053; 80307; 81001; 81025; 82150; 82550; 83605; 83690; 83880; 84484; 85025; 85379; 90791; 93005; 93041; 94760; 96360; 99000; 99285; G0480; Q3014; A9270-GY

== ENCOUNTER 2021-08-26 21:23 | Emergency (ER) | payer OTHER ==
[2021-08-26 22:05] LABS: Absolute Neutrophil Ct (ANC) 4.66 (1.4-6.9); Basophil (Absolute #) 0.02 (0-0.4); Eosinophil % 1.9 % (0.00-5.0); Eosinophil (Absolute #) 0.15 (0-0.5); Hematocrit 40.3 % (35-47); Hemoglobin 12.8 gm/dl (12.0-16.0); Lymphocyte (Absolute #) 2.41 (1.0-4.6); Lymphocytes % 30.4 % (24.0-44.0); Mean Cell Volume 84.7 fl (78-100); Mean Corpuscular Hemoglobin 26.9 pg (26-32); Mean Corpuscular Hgb Concent. 31.8 g/dl (32-36); Mean Platelet Volume 10.7 fl (7.5-11.0); Monocyte (Absolute #) 0.69 (0.0-1.3); Monocytes % 8.7 % (0.0-12.0); Neutrophil % 58.7 % (36.0-66.0); Platelet Count 220 K/mm3 (150-450); Red Blood Count 4.76 M/mm3 (4.1-5.4); Red Cell Distribution Width 17.3 % (11.5-14.0); White Blood Count 7.9 K/mm3 (4.0-10.5)
[2021-08-26 22:22] LABS: Amphetamine,Urine NEGATIVE (NEGATIVE); Barbiturate,Urine NEGATIVE (NEGATIVE); Benzodiazepine,Urine NEGATIVE (NEGATIVE); Cocaine,Urine NEGATIVE (NEGATIVE); Opiate,Urine NEGATIVE (NEGATIVE); PCP,Urine NEGATIVE (NEGATIVE); THC,Urine NEGATIVE (NEGATIVE)
[2021-08-26 22:25] LABS: Methadone,Urine NEGATIVE (NEGATIVE)
[2021-08-26 22:43] LABS: Appearance SLIGHTLY CLOUDY (CLEAR); Bilirubin NEGATIVE (NEGATIVE); Blood NEGATIVE Ery/ul (0-5); Epithelial Cells RARE /HPF (FEW); Glucose NEGATIVE (NEGATIVE); Ketones NEGATIVE (NEGATIVE); Leukocyte Esterase NEGATIVE (NEGATIVE); Mucus SLIGHT /HPF (NEGATIVE); Nitrite NEGATIVE (NEGATIVE); Protein,Urine Dip 100 (Negative); Specific Gravity 1.015 (1.005-1.025); Urobilinogen 2 mg/dL (0-1)
[2021-08-26 22:44] LABS: ACETAMINOPHEN < 10 ug/ml (10-30); ALKALINE PHOSPHATASE 139 U/L (38-126); ANION GAP 10.2 MEQ/L (5-15); BLOOD UREA NITROGEN 2 mg/dL (7-17); CHLORIDE 109 mmol/L (98-107); Calcium 9.1 mg/dL (8.4-10.2); Carbon Dioxide 24 mmol/L (22-30); Creatinine 1 0.52 mg/dL (0.52-1.04); EST GLOMERULAR FILTRATION RATE > 60.0 ML/MIN; ETHYL ALCOHOL < 10 mg/dL (0-10); Glucose 91 mg/dL (74-106); Potassium 3.6 mmol/L (3.5-5.1); SALICYLATE < 1.0 mg/dL (2-20); SGOT/AST 37 U/L (14-36); SGPT/ALT 16 U/L (0-35); SODIUM 140 mmol/L (137-145)
--- NOTE | 2021-08-26 22:45 | ERPHSYRPT ---
- History of Present Illness Time Seen by Provider: 08/26/21 21:30 Source: patient Exam Limitations: no limitations Patient Subjective Stated Complaint: "I'm not any better." Triage Nursing Assessment: Patient presented to the ED via law enforcement who reported that the patient was punching herself in the head and pulling her hair out. The patient was recently evaluated by [facility] and given a safety plan. She reported that she attempted to utilize this plan but it did not help. She denied suicidal/homicidal ideations. Denied visual/auditory hallucinations. She reported that she struck herself because she did not want to hit other p eople. Physician History: This is an obese 35-year-old white female who was seen here yesterday in the emergency room for anger outburst issues, depression and suicidal thoughts. Patient was evaluated by [facility] via telepsychology yesterday and determined that she is not suicidal risk and was given an outpatient safety plan. In the last 24 hours or so, the patient states she does not feel any better. She is trying to harm herself by punching herself and pulling out her hair. Patient states she gets so frustrated and angry at issues going on with her life that she hurts herself because she does not want to hurt anyone else. She denies a suicidal plan. She denies homicidal thoughts. Patient denies auditory or visual hallucinations. Patient does not know where to turn. Patient states that she does not have an outpatient appointment till September 10. She does not have a [id number] appointment until October 07, 2021. She states that she cannot wait that long to be evaluated Timing/Duration: yesterday Severity of Symptoms-Max: moderate Severity of Symptoms-Current: moderate Context related to: living circumstances, other (Loss of control of her anger) Associated Symptoms: angry, agitated, frustrated, other (Self-harm) Previous symptoms: same symptoms as today, recently seen, recently treated Allergies/Adverse Reactions: No Known Drug Allergies Allergy (Verified 08/26/21 21:25) Home Medications: Famotidine 20 mg [Pepcid 20 MG] 40 mg PO DAILY 06/07/21 [History] Loratadine 10 mg [Claritin 10 mg] 10 mg PO DAILY 06/07/21 [History] Etodolac 300 mg PO BID 07/14/21 [History] Aripiprazole 10 mg [Abilify 10 MG] 10 mg PO 08/25/21 [History] Tramadol HCl [Tramadol HCl ER] 200 mg PO 08/25/21 [History] Hx Tetanus, Diphtheria Vaccination/Date Given: Yes Hx Influenza Vaccination/Date Given: No Hx Pneumococcal Vaccination/Date Given: No Travel Risk - International Travel Have you traveled outside of the country in past 3 weeks: No - Coronavirus Screening Are you exhibiting any of the following symptoms?: No Close contact with a COVID-19 positive Pt in past 14-21 Days: No - Vaccine Status Have you recieved a Covid-19 vaccination: No - Past Medical History Pertinent Past Medical History: Yes Neurological History: No Pertinent History ENT History: No Pertinent History Cardiac History: No Pertinent History Respiratory History: No Pertinent History Endocrine Medical History: No Pertinent History Musculoskeletal History: No Pertinent History GI Medical History: Other History: No Pertinent History Psycho-Social History: Depression Female Reproductive Disorders: No Pertinent History Other Medical History: chronic back, celiac disease, 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 - Social History Smoking Status: Never smoker How long have you smoked: 4 years Exposure to second hand smoke: Yes Drug Use: none Patient Lives Alone: No Significant Family History: no pertinent family hx - Female History Hx Now: No - Review of Systems Constitutional: No Symptoms Eyes: No Symptoms Ears, Nose, & Throat: No Symptoms Respiratory: No Symptoms Cardiac: No Symptoms Abdominal/Gastrointestinal: No Symptoms Genitourinary Symptoms: No Symptoms Musculoskeletal: No Symptoms Skin: No Symptoms Neurological: No Symptoms Psychological: Anxiety, Depression, Emotional Lability, Mood Changes, Other (Anger issues anger outbursts) Endocrine: No Symptoms Hematologic/Lymphatic: No Symptoms Immunological/Allergic: No Symptoms All Other Systems: Reviewed and Negative - Nursing Vital Signs Nursing Vital Signs: Initial Vital Signs Temperature 98.8 F 08/26/21 21:24 Pulse Rate 120 H 08/26/21 21:24 Respiratory Rate 18 08/26/21 21:24 Blood Pressure 148/86 08/26/21 21:24 O2 Sat by Pulse Oximetry 98 08/26/21 21:24 Pain Scale Pain Intensity 0 - Physical Exam General Appearance: no apparent distress, alert, anxiety, obese Eyes, Ears, Nose, Throat Exam: normal ENT inspection, moist mucous membranes Neck Exam: normal inspection, non-tender, supple, full range of motion Respiratory Exam: normal breath sounds, lungs clear, airway intact, No chest tenderness, No respiratory distress Cardiovascular Exam: regular rate/rhythm, normal heart sounds, normal peripheral pulses Gastrointestinal/Abdominal Exam: soft, normal bowel sounds, No tenderness Extremities Exam: normal inspection, normal range of motion, No evidence of injury Current Suicidality: denies suicide plan Neurological Exam: alert, normal mood/affect, calm, psychiatric assistant II-XII nml as tested, oriented x 3, anxious, depressed affect Appearance: appropriate appearance, appropriate insight Behavior/Eye Contact/Speech: alert & cooperative, good eye contact, normal speech Thoughts/Hallucinations: normal thought pattern, no apparent hallucination Skin Exam: normal color, warm, dry SpO2 Interpretation: normal SpO2: 98 O2 Delivery: Room Air - Course Nursing assessment & vital signs reviewed: Yes Ordered Tests: Active Orders 24 hr Category Date Time Status ACETAMINOPHEN Stat Lab 08/26/21 22:02 Completed CBC W DIFF Stat Lab 08/26/21 22:02 Completed CMP Stat Lab 08/26/21 22:02 Completed COVID AG-BINAX NOW RAPID TEST Stat Lab 08/26/21 22:30 Completed ETHYL ALCOHOL Stat Lab 08/26/21 22:02 Completed HCG,QUALITATIVE URINE Stat Lab 08/26/21 21:48 Completed SALICYLATE Stat Lab 08/26/21 22:02 Completed UA W/RFX UR CULTURE Stat Lab 08/26/21 21:48 Completed Urine Triage Profile Stat Lab 08/26/21 21:48 Completed Lab/Rad Data: Laboratory Result Diagrams 08/26/21 22:02 08/26/21 22:02 Laboratory Results 08/26/21 08/26/21 08/26/21 Range/Units 22:30 22:02 22:02 WBC 7.9 (4.0-10.5) K/mm3 RBC 4.76 (4.1-5.4) M/mm3 Hgb 12.8 (12.0-16.0) gm/dl Hct 40.3 (35-47) % MCV 84.7 (78-100) fl MCH 26.9 (26-32) pg MCHC 31.8 L (32-36) g/dl RDW 17.3 H (11.5-14.0) % Plt Count 220 (150-450) K/mm3 MPV 10.7 (7.5-11.0) fl Gran % 58.7 (36.0-66.0) % Eos # (Auto) 0.15 (0-0.5) Absolute Lymphs (auto) 2.41 (1.0-4.6) Absolute Monos (auto) 0.69 (0.0-1.3) Lymphocytes % 30.4 (24.0-44.0) % Monocytes % 8.7 (0.0-12.0) % Eosinophils % 1.9 (0.00-5.0) % Basophils % 0.3 (0.0-0.4) % Absolute Granulocytes 4.66 (1.4-6.9) Basophils # 0.02 (0-0.4) Sodium 140 (137-145) mmol/L Potassium 3.6 (3.5-5.1) mmol/L Chloride 109 H (98-107) mmol/L Carbon Dioxide 24 (22-30) mmol/L Anion Gap 10.2 (5-15) MEQ/L BUN 2 L (7-17) mg/dL Creatinine 0.52 (0.52-1.04) mg/dL Estimated GFR > 60.0 ML/MIN Glucose 91 (74-106) mg/dL Calcium 9.1 (8.4-10.2) mg/dL Total Bilirubin 0.80 (0.2-1.3) mg/dL AST 37 H (14-36) U/L ALT 16 (0-35) U/L Alkaline Phosphatase 139 H (38-126) U/L Serum Total Protein 7.0 (6.3-8.2) g/dL Albumin 4.0 (3.5-5.0) g/dL Urine Color (YELLOW) Urine Appearance (CLEAR) Urine pH (5-6) Ur Specific [place] (1.005-1.025) Urine Protein (Negative) Urine Ketones (NEGATIVE) Urine Blood (0-5) Venkata/ul Urine Nitrite (NEGATIVE) Urine Bilirubin (NEGATIVE) Urine Urobilinogen (0-1) mg/dL Ur Leukocyte Esterase (NEGATIVE) Urine WBC (Auto) (0-5) /HPF Urine RBC (Auto) (0-2) /HPF U Hyaline Cast (Auto) (0-2) /LPF U Epithel Cells (Auto) (FEW) /HPF Urine Bacteria (Auto) (NEGATIVE) /HPF Urine Mucus (Auto) (NEGATIVE) /HPF Urine Culture Reflexed (NO) Urine Glucose (NEGATIVE) mg/dL Urine HCG, Qual (Negative) Salicylates < 1.0 L (2-20) mg/dL Urine Opiates Level (NEGATIVE) Ur Methadone (NEGATIVE) Acetaminophen < 10 L (10-30) ug/ml Urine Barbiturates (NEGATIVE) Ur Phencyclidine (PCP) (NEGATIVE) Urine Amphetamine (NEGATIVE) U Benzodiazepine Level (NEGATIVE) Urine Cocaine (NEGATIVE) Urine Marijuana (THC) (NEGATIVE) Ethyl Alcohol < 10 (0-10) mg/dL SARS-CoV-2 Ag (Rapid) NEGATIVE (NEGATIVE) 08/26/21 08/26/21 08/26/21 Range/Units 21:48 21:48 21:48 WBC (4.0-10.5) K/mm3 RBC (4.1-5.4) M/mm3 Hgb (12.0-16.0) gm/dl Hct (35-47) % MCV (78-100) fl MCH (26-32) pg MCHC (32-36) g/dl RDW (11.5-14.0) % Plt Count (150-450) K/mm3 MPV (7.5-11.0) fl Gran % (36.0-66.0) % Eos # (Auto) (0-0.5) Absolute Lymphs (auto) (1.0-4.6) Absolute Monos (auto) (0.0-1.3) Lymphocytes % (24.0-44.0) % Monocytes % (0.0-12.0) % Eosinophils % (0.00-5.0) % Basophils % (0.0-0.4) % Absolute Granulocytes (1.4-6.9) Basophils # (0-0.4) Sodium (137-145) mmol/L Potassium (3.5-5.1) mmol/L Chloride (98-107) mmol/L Carbon Dioxide (22-30) mmol/L Anion Gap (5-15) MEQ/L BUN (7-17) mg/dL Creatinine (0.52-1.04) mg/dL Estimated GFR ML/MIN Glucose (74-106) mg/dL Calcium (8.4-10.2) mg/dL Total Bilirubin (0.2-1.3) mg/dL AST (14-36) U/L ALT (0-35) U/L Alkaline Phosphatase (38-126) U/L Serum Total Protein (6.3-8.2) g/dL Albumin (3.5-5.0) g/dL Urine Color YELLOW (YELLOW) Urine Appearance SLIGHTLY CLOUDY (CLEAR) Urine pH 5.0 (5-6) Ur Specific [place] 1.015 (1.005-1.025) Urine Protein 100 (Negative) Urine Ketones NEGATIVE (NEGATIVE) Urine Blood NEGATIVE (0-5) Venkata/ul Urine Nitrite NEGATIVE (NEGATIVE) Urine Bilirubin NEGATIVE (NEGATIVE) Urine Urobilinogen 2 (0-1) mg/dL Ur Leukocyte Esterase NEGATIVE (NEGATIVE) Urine WBC (Auto) NONE (0-5) /HPF Urine RBC (Auto) NONE (0-2) /HPF U Hyaline Cast (Auto) 11-25 (0-2) /LPF U Epithel Cells (Auto) RARE (FEW) /HPF Urine Bacteria (Auto) NONE (NEGATIVE) /HPF Urine Mucus (Auto) SLIGHT (NEGATIVE) /HPF Urine Culture Reflexed NO (NO) Urine Glucose NEGATIVE (NEGATIVE) mg/dL Urine HCG, Qual NEGATIVE (Negative) Salicylates (2-20) mg/dL Urine Opiates Level NEGATIVE (NEGATIVE) Ur Methadone NEGATIVE (NEGATIVE) Acetaminophen (10-30) ug/ml Urine Barbiturates NEGATIVE (NEGATIVE) Ur Phencyclidine (PCP) NEGATIVE (NEGATIVE) Urine Amphetamine NEGATIVE (NEGATIVE) U Benzodiazepine Level NEGATIVE (NEGATIVE) Urine Cocaine NEGATIVE (NEGATIVE) Urine Marijuana (THC) NEGATIVE (NEGATIVE) Ethyl Alcohol (0-10) mg/dL SARS-CoV-2 Ag (Rapid) (NEGATIVE) - Progress Progress Note: 08/27/21 03:45 This patient was evaluated by [facility] telepsych. This is the patient's second evaluation within the last 48 hours or so. The patient's case was again staffed with on-call psychiatrist patient is diagnosed with borderline personality disorder, unspecified depressive disorder. She does not meet inpatient hospitalization criteria. It is felt by the therapist that patient is not suicidal. Patient is being discharged to home with the same appointments and she is to implement and continue with the safety plan. Counseled pt/family regarding: lab results, diagnosis, need for follow-up - Departure Departure Disposition: Home Clinical Impression: Borderline personality disorder in adult, Depression, unspecified Condition: Stable Critical Care Time: No Referrals: YESSENIA SALTER [Primary Care Provider] - Follow up/PCP as directed Additional Instructions: Keep all your prescheduled appointments and implement the safety plan as discussed with the therapist this morning.
[2021-08-26 22:51] LABS: COVID AG -BINAX NOW RAPID TEST NEGATIVE (NEGATIVE)
[2021-08-27 04:31] VITALS: BP 102/64; PULSE 79; O2SAT 97
== END 2021-08-27 04:37 | disposition home or self-care (01) ==
LOC: ED 21:23
DX: F60.3 Borderline personality disorder (principal); F32.A Depression, unspecified; Z59.9 Problem related to housing and economic circumstances, unspecified; R45.88 Nonsuicidal self-harm; Z79.891 Long term (current) use of opiate analgesic; Z79.899 Other long term (current) drug therapy
CPT/HCPCS: 36415; 80053; 80307; 81001; 84703; 85025; 99000; 99284; G0480

== ENCOUNTER 2021-10-08 02:18 | Emergency (ER) | payer OTHER ==
[2021-10-08 03:05] LABS: Absolute Neutrophil Ct (ANC) 5.34 (1.4-6.9); Basophil (Absolute #) 0.02 (0-0.4); Eosinophil % 1.1 % (0.00-5.0); Eosinophil (Absolute #) 0.09 (0-0.5); Hematocrit 40.8 % (35-47); Hemoglobin 12.9 gm/dl (12.0-16.0); Lymphocyte (Absolute #) 2.13 (1.0-4.6); Lymphocytes % 25.6 % (24.0-44.0); Mean Cell Volume 83.1 fl (78-100); Mean Corpuscular Hemoglobin 26.3 pg (26-32); Mean Corpuscular Hgb Concent. 31.6 g/dl (32-36); Mean Platelet Volume 11.3 fl (7.5-11.0); Monocyte (Absolute #) 0.74 (0.0-1.3); Monocytes % 8.9 % (0.0-12.0); Neutrophil % 64.2 % (36.0-66.0); Platelet Count 185 K/mm3 (150-450); Red Blood Count 4.91 M/mm3 (4.1-5.4); White Blood Count 8.3 K/mm3 (4.0-10.5)
[2021-10-08 03:10] LABS: Appearance CLOUDY (CLEAR); Glucose NEGATIVE (NEGATIVE)
[2021-10-08 03:11] LABS: Bilirubin MODERATE (NEGATIVE); Dipstick done @ ? MAIN LAB; Ketones TRACE (NEGATIVE); Nitrite POSITIVE (NEGATIVE); Ph 5.5 (5-6); Protein,Urine Dip >=300 (Negative); RBC LARGE Ery/ul (0-5); Specific Gravity >=1.030 (1.005-1.025); Urobilinogen 1 mg/dL (0-1)
[2021-10-08 03:17] LABS: Bacteria MODERATE /HPF (NEGATIVE); Epithelial Cells RARE /HPF (FEW); Mucus MANY /HPF (NEGATIVE); WBC 0-2 /HPF (0-5)
[2021-10-08 03:18] LABS: RBC >101 /HPF (0-2); Urine Cultured Indicated? YES
[2021-10-08 03:20] LABS: ACETAMINOPHEN < 10 ug/ml (10-30); ETHYL ALCOHOL < 10 mg/dL (0-10); SALICYLATE < 1.0 mg/dL (2-20)
[2021-10-08 03:21] LABS: Amphetamine,Urine NEGATIVE (NEGATIVE); Barbiturate,Urine NEGATIVE (NEGATIVE); Benzodiazepine,Urine NEGATIVE (NEGATIVE); Cocaine,Urine NEGATIVE (NEGATIVE); Methadone,Urine NEGATIVE (NEGATIVE); Opiate,Urine NEGATIVE (NEGATIVE); PCP,Urine NEGATIVE (NEGATIVE); THC,Urine NEGATIVE (NEGATIVE)
[2021-10-08 03:21] LABS: ALBUMIN 3.9 g/dL (3.5-5.0); ALKALINE PHOSPHATASE 143 U/L (38-126); ANION GAP 11.4 MEQ/L (5-15); BLOOD UREA NITROGEN 7 mg/dL (7-17); CHLORIDE 109 mmol/L (98-107); Calcium 8.8 mg/dL (8.4-10.2); Carbon Dioxide 23 mmol/L (22-30); EST GLOMERULAR FILTRATION RATE > 60.0 ML/MIN; Glucose 110 mg/dL (74-106); Potassium 3.1 mmol/L (3.5-5.1); SGOT/AST 27 U/L (14-36); SGPT/ALT 13 U/L (0-35); SODIUM 140 mmol/L (137-145); Total Protein 6.8 g/dL (6.3-8.2)
[2021-10-08 03:46] LABS: INFLUENZA A NEGATIVE (NEGATIVE); INFLUENZA B NEGATIVE (NEGATIVE); RESPIRATORY SYNCTIAL VIRUS NEGATIVE (Negative); SARS-CoV-2 Xpert Express NEGATIVE (NEGATIVE)
--- NOTE | 2021-10-08 03:54 | ERPHSYRPT ---
- History of Present Illness Time Seen by Provider: 10/08/21 02:40 Source: patient Exam Limitations: no limitations Patient Subjective Stated Complaint: States, "I am really depressed and I want to kill myself." States she feels as if no one will listen to her and take her seriously. She thinks she needs more/different medications for her depression and [facility] just blew her off today and told her to wait for her appointment with the HEATER WORKER on Wednesday. Patient denies having a plan for suicide. She denies any homicidal thoughts. She denies any past attempts of suicide just previous thoughts of wanting to harm herself. Triage Nursing Assessment: Patient arrived to the ED via commissioned police officer escorted by an officer. Patient came to ED willingly; requested to be brought to ED. Patient ambulated back to ED without difficulties noted in gait. Alert and oriented and answering questions appropriately. She is anxious, rambling, talking excessively. Patient yelling at times that no one will take her seriously and believe that she has a real illness referring to depression. Patient thinks people laugh at her and make fun of her illness. She is visibly upset; not crying or tearful at this time. No injuries noted when removing clothing to place patient in a gown. Physician History: This is a 35 y/o female pt with h/o depression and presents with recurrent thoughts suicide. she has had these thoughts in the past. she has never attempted and does not have a plan but states she does want to kill herself. she denies homicidal thoughts. she is frustrated about her medications not helping and feels as though she needs to have the dosages adjusted. she thinks people are not taking her serious and people are making fun of her. she denies headache, denies cp, denies sob. she denies abd pain. Timing/Duration: intermittent, worse Severity of Symptoms-Max: moderate Severity of Symptoms-Current: moderate Context related to: living circumstances Suicidal thoughts: other (no specific plan) Associated Symptoms: angry, depressed, frustrated Previous symptoms: same symptoms as today Allergies/Adverse Reactions: No Known Drug Allergies Allergy (Verified 10/08/21 02:19) Home Medications: Famotidine 20 mg [Pepcid 20 MG] 40 mg PO DAILY 06/07/21 [History] Loratadine 10 mg [Claritin 10 mg] 10 mg PO DAILY 06/07/21 [History] Tramadol HCl [Tramadol HCl ER] 200 mg PO DAILY 08/25/21 [History] clonazePAM 1 tab PO BID 10/08/21 [History] Hx Tetanus, Diphtheria Vaccination/Date Given: Yes Hx Influenza Vaccination/Date Given: No Hx Pneumococcal Vaccination/Date Given: No Immunizations Up to Date: Yes Travel Risk - International Travel Have you traveled outside of the country in past 3 weeks: No - Coronavirus Screening Are you exhibiting any of the following symptoms?: No Close contact with a COVID-19 positive Pt in past 14-21 Days: No - Vaccine Status Have you recieved a Covid-19 vaccination: No - Past Medical History Pertinent Past Medical History: Yes Neurological History: No Pertinent History ENT History: No Pertinent History Cardiac History: No Pertinent History Respiratory History: No Pertinent History Endocrine Medical History: No Pertinent History Musculoskeletal History: No Pertinent History GI Medical History: Other History: No Pertinent History Psycho-Social History: Depression Female Reproductive Disorders: No Pertinent History Other Medical History: chronic back pain, celiac disease, 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 - Social History Smoking Status: Current every day smoker How long have you smoked: few years Exposure to second hand smoke: Yes Drug Use: none Patient Lives Alone: No (Mom & Boyfriend) Significant Family History: no pertinent family hx - Female History Hx Last Menstrual Period: Within in the last month; spotting now Hx Now: No (Unsure) - Review of Systems Constitutional: No Symptoms Eyes: No Symptoms Ears, Nose, & Throat: No Symptoms Respiratory: No Symptoms Cardiac: No Symptoms Abdominal/Gastrointestinal: No Symptoms Genitourinary Symptoms: No Symptoms Musculoskeletal: No Symptoms Skin: No Symptoms Neurological: No Symptoms Psychological: No Symptoms Endocrine: No Symptoms Hematologic/Lymphatic: No Symptoms Immunological/Allergic: No Symptoms All Other Systems: Reviewed and Negative - Nursing Vital Signs Nursing Vital Signs: Initial Vital Signs Temperature 98.9 F 10/08/21 02:24 Pulse Rate 105 H 10/08/21 02:24 Respiratory Rate 20 10/08/21 02:24 Blood Pressure 124/79 10/08/21 02:24 O2 Sat by Pulse Oximetry 96 10/08/21 02:24 Pain Scale Pain Intensity 0 - Physical Exam General Appearance: no apparent distress, alert, anxiety, obese Eyes, Ears, Nose, Throat Exam: normal ENT inspection, moist mucous membranes Neck Exam: normal inspection, non-tender, supple, full range of motion Respiratory Exam: normal breath sounds, lungs clear, airway intact, No chest tenderness, No respiratory distress Cardiovascular Exam: regular rate/rhythm, normal heart sounds, normal peripheral pulses Gastrointestinal/Abdominal Exam: soft, normal bowel sounds, No tenderness Current Suicidality: denies suicide plan Neurological Exam: alert, normal mood/affect, 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, oriented x 3, anxious, depressed affect Appearance: no memory impairment, impaired insight Behavior/Eye Contact/Speech: alert & cooperative, increased rate of speech Thoughts/Hallucinations: no apparent hallucination, flight of ideas, paranoid Skin Exam: normal color, warm, dry SpO2 Interpretation: normal SpO2: 97 O2 Delivery: Room Air - Course Nursing assessment & vital signs reviewed: Yes EKG Interpreted by Me: RATE (99), Sinus Rhythm, NORMAL AXIS, NORMAL INTERVALS, NORMAL QRS, Non-specific ST Changes, Other (no acute ischemia) Ordered Tests: Active Orders 24 hr Category Date Time Status Clean Catch Urine Specimen STAT Care 10/08/21 02:42 Active ACETAMINOPHEN Stat Lab 10/08/21 02:59 Completed CBC W DIFF Stat Lab 10/08/21 02:59 Completed CMP Stat Lab 10/08/21 02:40 Completed CULTURE,URINE Stat Lab 10/08/21 02:44 Received ETHYL ALCOHOL Stat Lab 10/08/21 02:59 Completed HCG,QUALITATIVE URINE Stat Lab 10/08/21 02:57 Completed SALICYLATE Stat Lab 10/08/21 02:59 Completed Urine Triage Profile Stat Lab 10/08/21 02:44 Completed Medication Summary Discontinued Medications Generic Name Dose Route Start Last Admin Trade Name Eldon PRN Reason Stop Dose Admin Ciprofloxacin 500 mg 10/08/21 04:13 10/08/21 04:19 Ciprofloxacin 500 Mg Tablet PO 10/08/21 04:14 500 mg STAT ONE Administration Ciprofloxacin Confirm 10/08/21 04:17 Ciprofloxacin 500 Mg Tablet Administered 10/08/21 04:18 Dose 500 mg .ROUTE .STK-MED ONE Ondansetron HCl 4 mg 10/08/21 05:51 10/08/21 05:53 Zofran 4 Mg/Udtablet Orally Disintegrating PO 10/08/21 05:52 4 mg STAT ONE Administration Ondansetron HCl Confirm 10/08/21 05:52 Zofran 4 Mg/Udtablet Orally Disintegrating Administered 10/08/21 05:53 Dose 4 mg .ROUTE .STK-MED ONE Potassium Chloride 20 meq 10/08/21 04:12 10/08/21 04:18 Potassium Chloride 10 Meq Tablet PO 10/08/21 04:13 20 meq STAT ONE Administration Potassium Chloride Confirm 10/08/21 04:17 Potassium Chloride 10 Meq Tablet Administered 10/08/21 04:18 Dose 20 meq PO .STK-MED ONE Lab/Rad Data: Laboratory Result Diagrams 10/08/21 02:59 10/08/21 02:40 Laboratory Results 10/08/21 10/08/21 10/08/21 Range/Units 02:59 02:59 02:59 WBC 8.3 (4.0-10.5) K/mm3 RBC 4.91 (4.1-5.4) M/mm3 Hgb 12.9 (12.0-16.0) gm/dl Hct 40.8 (35-47) % MCV 83.1 (78-100) fl MCH 26.3 (26-32) pg MCHC 31.6 L (32-36) g/dl RDW 17.0 H (11.5-14.0) % Plt Count 185 (150-450) K/mm3 MPV 11.3 H (7.5-11.0) fl Gran % 64.2 (36.0-66.0) % Eos # (Auto) 0.09 (0-0.5) Absolute Lymphs (auto) 2.13 (1.0-4.6) Absolute Monos (auto) 0.74 (0.0-1.3) Lymphocytes % 25.6 (24.0-44.0) % Monocytes % 8.9 (0.0-12.0) % Eosinophils % 1.1 (0.00-5.0) % Basophils % 0.2 (0.0-0.4) % Absolute Granulocytes 5.34 (1.4-6.9) Basophils # 0.02 (0-0.4) Sodium (137-145) mmol/L Potassium (3.5-5.1) mmol/L Chloride (98-107) mmol/L Carbon Dioxide (22-30) mmol/L Anion Gap (5-15) MEQ/L BUN (7-17) mg/dL Creatinine (0.52-1.04) mg/dL Estimated GFR ML/MIN Glucose (74-106) mg/dL Calcium (8.4-10.2) mg/dL Total Bilirubin (0.2-1.3) mg/dL AST (14-36) U/L ALT (0-35) U/L Alkaline Phosphatase (38-126) U/L Serum Total Protein (6.3-8.2) g/dL Albumin (3.5-5.0) g/dL Urinalys Dipstick Clnc Urine Color (YELLOW) Urine Appearance (CLEAR) Urine pH (5-6) Ur Specific [place] (1.005-1.025) POC Urine Protein Conf (Negative) Urine Ketones (NEGATIVE) Urine Nitrite (NEGATIVE) Urine Bilirubin (NEGATIVE) Urine Urobilinogen (0-1) mg/dL Urine Leukocytes (NEGATIVE) Urine WBC (Auto) (0-5) /HPF Urine RBC (Auto) (0-2) /HPF U Hyaline Cast (Auto) (0-2) /LPF U Epithel Cells (Auto) (FEW) /HPF Urine Bacteria (Auto) (NEGATIVE) /HPF Urine RBC (0-5) Venkata/ul Urine Mucus (Auto) (NEGATIVE) /HPF Ur Culture Indicated? Urine Glucose (NEGATIVE) mg/dL Urine HCG, Qual (Negative) Salicylates < 1.0 L (2-20) mg/dL Urine Opiates Level (NEGATIVE) Ur Methadone (NEGATIVE) Acetaminophen < 10 L (10-30) ug/ml Urine Barbiturates (NEGATIVE) Ur Phencyclidine (PCP) (NEGATIVE) Urine Amphetamine (NEGATIVE) U Benzodiazepine Level (NEGATIVE) Urine Cocaine (NEGATIVE) Urine Marijuana (THC) (NEGATIVE) Ethyl Alcohol < 10 (0-10) mg/dL Influenza Type A Ag NEGATIVE (NEGATIVE) Influenza Type B Ag NEGATIVE (NEGATIVE) RSV (PCR) NEGATIVE (Negative) SARS-CoV-2 (PCR) NEGATIVE (NEGATIVE) 10/08/21 10/08/21 10/08/21 Range/Units 02:57 02:44 02:44 WBC (4.0-10.5) K/mm3 RBC (4.1-5.4) M/mm3 Hgb (12.0-16.0) gm/dl Hct (35-47) % MCV (78-100) fl MCH (26-32) pg MCHC (32-36) g/dl RDW (11.5-14.0) % Plt Count (150-450) K/mm3 MPV (7.5-11.0) fl Gran % (36.0-66.0) % Eos # (Auto) (0-0.5) Absolute Lymphs (auto) (1.0-4.6) Absolute Monos (auto) (0.0-1.3) Lymphocytes % (24.0-44.0) % Monocytes % (0.0-12.0) % Eosinophils % (0.00-5.0) % Basophils % (0.0-0.4) % Absolute Granulocytes (1.4-6.9) Basophils # (0-0.4) Sodium (137-145) mmol/L Potassium (3.5-5.1) mmol/L Chloride (98-107) mmol/L Carbon Dioxide (22-30) mmol/L Anion Gap (5-15) MEQ/L BUN (7-17) mg/dL Creatinine (0.52-1.04) mg/dL Estimated GFR ML/MIN Glucose (74-106) mg/dL Calcium (8.4-10.2) mg/dL Total Bilirubin (0.2-1.3) mg/dL AST (14-36) U/L ALT (0-35) U/L Alkaline Phosphatase (38-126) U/L Serum Total Protein (6.3-8.2) g/dL Albumin (3.5-5.0) g/dL Urinalys Dipstick Clnc MAIN LAB Urine Color RED (YELLOW) Urine Appearance CLOUDY (CLEAR) Urine pH 5.5 (5-6) Ur Specific [employer] [place] >=1.030 (1.005-1.025) POC Urine Protein Conf >=300 (Negative) Urine Ketones TRACE (NEGATIVE) Urine Nitrite POSITIVE (NEGATIVE) Urine Bilirubin MODERATE (NEGATIVE) Urine Urobilinogen 1 (0-1) mg/dL Urine Leukocytes NEGATIVE (NEGATIVE) Urine WBC (Auto) 0-2 (0-5) /HPF Urine RBC (Auto) >101 (0-2) /HPF U Hyaline Cast (Auto) 3-5 (0-2) /LPF U Epithel Cells (Auto) RARE (FEW) /HPF Urine Bacteria (Auto) MODERATE (NEGATIVE) /HPF Urine RBC LARGE (0-5) Venkata/ul Urine Mucus (Auto) MANY (NEGATIVE) /HPF Ur Culture Indicated? YES Urine Glucose NEGATIVE (NEGATIVE) mg/dL Urine HCG, Qual NEGATIVE (Negative) Salicylates (2-20) mg/dL Urine Opiates Level NEGATIVE (NEGATIVE) Ur Methadone NEGATIVE (NEGATIVE) Acetaminophen (10-30) ug/ml Urine Barbiturates NEGATIVE (NEGATIVE) Ur Phencyclidine (PCP) NEGATIVE (NEGATIVE) Urine Amphetamine NEGATIVE (NEGATIVE) U Benzodiazepine Level NEGATIVE (NEGATIVE) Urine Cocaine NEGATIVE (NEGATIVE) Urine Marijuana (THC) NEGATIVE (NEGATIVE) Ethyl Alcohol (0-10) mg/dL Influenza Type A Ag (NEGATIVE) Influenza Type B Ag (NEGATIVE) RSV (PCR) (Negative) SARS-CoV-2 (PCR) (NEGATIVE) 10/08/21 Range/Units 02:40 WBC (4.0-10.5) K/mm3 RBC (4.1-5.4) M/mm3 Hgb (12.0-16.0) gm/dl Hct (35-47) % MCV (78-100) fl MCH (26-32) pg MCHC (32-36) g/dl RDW (11.5-14.0) % Plt Count (150-450) K/mm3 MPV (7.5-11.0) fl Gran % (36.0-66.0) % Eos # (Auto) (0-0.5) Absolute Lymphs (auto) (1.0-4.6) Absolute Monos (auto) (0.0-1.3) Lymphocytes % (24.0-44.0) % Monocytes % (0.0-12.0) % Eosinophils % (0.00-5.0) % Basophils % (0.0-0.4) % Absolute Granulocytes (1.4-6.9) Basophils # (0-0.4) Sodium 140 (137-145) mmol/L Potassium 3.1 L (3.5-5.1) mmol/L Chloride 109 H (98-107) mmol/L Carbon Dioxide 23 (22-30) mmol/L Anion Gap 11.4 (5-15) MEQ/L BUN 7 (7-17) mg/dL Creatinine 0.50 L (0.52-1.04) mg/dL Estimated GFR > 60.0 ML/MIN Glucose 110 H (74-106) mg/dL Calcium 8.8 (8.4-10.2) mg/dL Total Bilirubin 1.30 (0.2-1.3) mg/dL AST 27 (14-36) U/L ALT 13 (0-35) U/L Alkaline Phosphatase 143 H (38-126) U/L Serum Total Protein 6.8 (6.3-8.2) g/dL Albumin 3.9 (3.5-5.0) g/dL Urinalys Dipstick Clnc Urine Color (YELLOW) Urine Appearance (CLEAR) Urine pH (5-6) Ur Specific [employer] [place] (1.005-1.025) POC Urine Protein Conf (Negative) Urine Ketones (NEGATIVE) Urine Nitrite (NEGATIVE) Urine Bilirubin (NEGATIVE) Urine Urobilinogen (0-1) mg/dL Urine Leukocytes (NEGATIVE) Urine WBC (Auto) (0-5) /HPF Urine RBC (Auto) (0-2) /HPF U Hyaline Cast (Auto) (0-2) /LPF U Epithel Cells (Auto) (FEW) /HPF Urine Bacteria (Auto) (NEGATIVE) /HPF Urine RBC (0-5) Venkata/ul Urine Mucus (Auto) (NEGATIVE) /HPF Ur Culture Indicated? Urine Glucose (NEGATIVE) mg/dL Urine HCG, Qual (Negative) Salicylates (2-20) mg/dL Urine Opiates Level (NEGATIVE) Ur Methadone (NEGATIVE) Acetaminophen (10-30) ug/ml Urine Barbiturates (NEGATIVE) Ur Phencyclidine (PCP) (NEGATIVE) Urine Amphetamine (NEGATIVE) U Benzodiazepine Level (NEGATIVE) Urine Cocaine (NEGATIVE) Urine Marijuana (THC) (NEGATIVE) Ethyl Alcohol (0-10) mg/dL Influenza Type A Ag (NEGATIVE) Influenza Type B Ag (NEGATIVE) RSV (PCR) (Negative) SARS-CoV-2 (PCR) (NEGATIVE) - Progress Progress: improved, re-examined Progress Note: 10/08/21 06:30 Medical decision making: pt underwent a telehealth eval by [facility]'s [place] licensed mental health therapist who staffed this case with Dr. Salinas. Safety plan in place for outpt treatment. [facility] will call patient later today to discuss medications, dosages and arrange further outpt ap pointments. pt understands and is agreeable to plan Counseled pt/family regarding: lab results, diagnosis, need for follow-up - Departure Clinical Impression: Suicidal ideation, UTI (urinary tract infection) Condition: Stable Critical Care Time: No Referrals: YESSENIA SALTER [Primary Care Provider] - Follow up/PCP as directed Additional Instructions: Follow the safety plan arrange with and for you. Take antibiotics as prescribed Prescriptions: Ciprofloxacin [Cipro 500 MG] 500 mg PO BID #14 tablet
[2021-10-08] MEDS ORDERED: Klor Con 10 MEQ PO ONE (04:17)
[2021-10-08] MEDS ORDERED: Cipro 500 MG ONE (04:17)
[2021-10-08] MEDS: Klor Con 10 MEQ PO ONE (04:18)
[2021-10-08] MEDS: Cipro 500 MG PO ONE (04:19)
[2021-10-08] MEDS ORDERED: ZOFRAN ODT 4 MG ONE (05:52)
[2021-10-08] MEDS: ZOFRAN ODT 4 MG PO ONE (05:53)
[2021-10-08 06:09] VITALS: PULSE 90
[2021-10-08 06:22] VITALS: O2SAT 97
[2021-10-08 06:24] VITALS: BP 131/94
== END 2021-10-08 06:45 | disposition home or self-care (01) ==
LOC: ED 02:18
DX: R45.851 Suicidal ideations (principal); N39.0 Urinary tract infection, site not specified; F32.A Depression, unspecified; Z79.891 Long term (current) use of opiate analgesic; Z72.0 Tobacco use
CPT/HCPCS: 0241U; 36415; 80053; 80307; 81015; 84703; 85025; 87086; 90791; 93005; 99284; Q0162; Q3014; A9270-GY; G0480